=== PATIENT | female | born 1955 | race American Indian/Alaskan Native ===

== ENCOUNTER 2019-03-04 06:04 | Day surgery (SDC) | payer OTHER ==
[~2019-03-04 06:04] MED LIST: TETRACAINE 0.5% OD SCH
[2019-03-04] MEDS: VIGAMOX OD SCH ×3 (07:50→08:00)
[2019-03-04] MEDS: AK-Dilate OD SCH ×3 (07:50→08:00)
[2019-03-04] MEDS: MYDRIACYL OD SCH ×3 (07:50→08:00)
--- NOTE | 2019-03-04 08:32 | Anesthesia Consultation ---
Anesthesia Consult and Med Hx Date of service: 03/04/19 - Airway ROM Head & Neck: Adequate Mental/Hyoid Distance: Adequate Mallampati Class: Class II Intubation Access Assessment: Probably Good - Pulmonary Exam CTA: Yes - Cardiac Exam Cardiac Exam: RRR - Pre-Operative Health Status ASA Pre-Surgery Classification: ASA3 Proposed Anesthetic Plan: MAC - Pulmonary Hx Smoking: No Hx Respiratory Symptoms: No - Cardiovascular System Hx Hypertension: Yes (NO MEDS) Hx Coronary Artery Disease: Yes Hx Heart Attack/AMI: No Hx Peripheral Vascular Disease: Yes (bilateral lower extremity edema) - Central Nervous System CVA: No - Endocrine Hx Renal Disease: No Hx Insulin Dependent Diabetes: No Hx Non-Insulin Dependent Diabetes: No Hx Hypothyroidism: Yes - Other Systems Hx Obesity: Yes
--- NOTE | 2019-03-04 08:32 | Anesthesia Day of Surgery ---
Anesthesia Day of Surgery - Day of Surgery Patient Examined: Yes Patient H&P Reviewed: Yes Patient is NPO: Yes
[2019-03-04] MEDS ORDERED: VERSED ONE ×2 (08:35→10:15)
[2019-03-04] MEDS ORDERED: SUBLIMAZE ONE ×2 (08:36→10:15)
[2019-03-04] MEDS ORDERED: PRED FORTE 1% OD NR (08:58)
--- NOTE | 2019-03-04 08:59 | Operative Report ---
Operative Report Operative Report: PATIENT'S NAME: DATE OF : DATE OF SURGERY: 03/04/2019 PREOPERATIVE DIAGNOSIS: Cataract right eye POSTOPERATIVE DIAGNOSIS: Same OPERATIVE PROCEDURE: Phacoemulsification with intraocular lens implantation, right eye SURGEON: Jennifer Salinas M.D. REIMBURSEMENT COORDINATOR SURGEON: Elzbieta Lens: [id number] 18.5 D ANESTHESIA: Monitored anesthesia care in combination with topical and intracameral anesthesia because of the established specific risk of reflux, arrhythmias, or anxiety attacks associated with ocular manipulation, as well as the difficulty of the mail order sorter to manage such potentially catastrophic events while simultaneously attempting to complete the surgical procedure and was deemed necessary for the patient's safety to have an Sign Board Erector present during the procedure whenever possible. An Sign Board Erector was utilized to regulate the intravenous sedation of the patient so the patient was cooperative yet not asleep in order for the patient to successfully maintain fixation of the eye on the operating light of the microscope. COMPLICATIONS: No surgical complications No blood loss. ALLERGIES: No known drug allergies PROGNOSIS: Excellent INDICATIONS FOR SURGERY: The patient is undergoing surgery in the hopes of eliminating or improving these visual difficulties. PROCEDURE: After arriving at the surgery center, the patient was given topical anesthetic and dilating drops, as noted in the record. The patient was then taken into the operating room and given more anesthetic drops. The eyelids, lashes, and lid margins were scrubbed with Betadine solution, and the patient was draped. The Nurse Sign Board Erector administered IV sedation and monitored the patient during the procedure. The eye was then fixated with a 0.12, and a stab incision was made in the peripheral clear cornea into the anterior chamber. This was made on my left side. Viscoelastic was next used to fill the anterior chamber. The eye was once again fixated with the 0.12 forceps and a keratome was used make an incision in clear cornea peripherally on my right hand side temporally. The capsule forceps were used to open the central anterior capsule and then make a continuous round capsulotomy. Hydrodissection was carried out utilizing a cannula and balanced salt solution to delineate the cortical material from the capsule and the nucleus from the cortical material. The phaco tip was introduced into the eye and used to remove the anterior cortical material in the area of the capsulotomy. Then the phaco tip was buried into the nucleus, and a chopping instrument was introduced into the eye and used to provide countertraction in the nucleus between this instrument and the phaco tip fracturing the nucleus. This procedure was repeated multiple times, providing multiple small segments of the lens, and then the phaco tip was used to remove each of these segments. An I/A tip was then used to remove the remaining cortex. The anterior chamber was refilled with viscoelastic. An one-piece, acrylic intraocular lens was then placed into an inserting cartridge. The tip of the inserting cartridge was introduced into the keratome incision and into the anterior chamber. The implant was gently advanced through the cartridge and into the eye, where it unfolded, and both haptics were placed in the capsular bag, where it centered nicely and appeared to be well fixated. After placement of the intraocular lens, the I~and~A handpiece was placed back into the eye and used to remove the viscoelastic, including viscoelastic that was behind the optic of the intraocular lens. The anterior chamber was then filled with balanced salt solution, and hydration of the wound was used to cause swelling of the wound and more appropriate watertight closure. When the wound was found to be firm, the patient was asked to comment on how bright the light was. If there was no light perception at all or if the light was substantially dimmer than during the rest of the surgery, the amount of fluid in the eye was decompressed to lower the intraocular pressure until the patient could see the b right light again. This was done to avoid any damage or decreased blood flow to the optic nerve. MEDICATIONS APPLIED AT END OF SURGERY: One drop of Pred Forte and Vigamox The patient was given a shield to wear at night and was instructed not to rub or push on the eye. DISCHARGE SUMMARY: The patient was released in stable condition. The patient and those with the patient were given a written sheet of postoperative instructions and counseling on any abnormal laboratory studies. The patient is to see us tomorrow for follow-up in the office and is to call immediately for any difficulties. Jennifer Salinas M.D. Date
--- NOTE | 2019-03-04 09:00 | Short Stay Summary ---
Short Stay Documentation Date of service: 03/04/19 - History H&P: obtained from office - Allergies and Medications Current Medications: Allergies No Known Allergies Allergy (Verified 03/03/19 17:38) Home Medications Medication Instructions Recorded Confirmed Last Taken Type Levothyroxine [Synthroid] 75 mcg PO QAM 03/03/19 03/03/19 Unknown History Active Medications Acetazolamide (Diamox) 500 mg PO ONCE ONE Stop: 03/04/19 08:59 Moxifloxacin HCl (Vigamox) 1 drops OD Q5MIN BG Stop: 03/04/19 23:59 Last Admin: 03/04/19 08:00 Dose: 1 drops Documented by: Phenylephrine HCl (Ak-Dilate) 1 drops OD Q5MIN BG Stop: 03/04/19 23:59 Last Admin: 03/04/19 08:00 Dose: 1 drops Documented by: Prednisolone Acetate (Pred Forte 1%) 1 drops OD ONCE ONE Stop: 03/04/19 08:59 Tetracaine HCl (Tetracaine 0.5%) 1 drops OD Q5M BG Stop: 03/04/19 23:59 Last Admin: 03/04/19 07:50 Dose: 1 drops Documented by: Tropicamide (Mydriacyl) 1 drops OD Q5MIN BG Stop: 03/04/19 23:59 Last Admin: 03/04/19 08:00 Dose: 1 drops Documented by: - Brief post op/procedure progress note Date of procedure: 03/04/19 Pre-op diagnosis: right cataract Post-op diagnosis: same Procedure: Phacoemulsified patient with intraocular lens insertion right eye Anesthesia: MAC, local Surgeon: EFREN ZIMMERMAN Estimated blood loss: none Pathology: none Condition: stable - Disposition Condition at discharge: Good Disposition: DC-01 TO HOME OR SELFCARE - Discharge Diagnoses (1) Cortical age-related cataract of right eye Status: Resolved Short Stay Discharge Plan Follow up with: LINDEN WOOD MD [Primary Care Provider] - 7 Days
[2019-03-04] MEDS ORDERED: DIAMOX PO NR (09:30)
[2019-03-04] MEDS ORDERED: ROBINUL ONE (10:13)
[2019-03-04] MEDS ORDERED: ZOFRAN ONE (10:14)
[2019-03-04] MEDS ORDERED: DIPRIVAN 10 MG/ML IV ONE (10:16)
[2019-03-04] MEDS ORDERED: XYLOCAINE MPF 2% ONE (10:16)
--- NOTE | 2019-03-04 10:26 | Post Anesthesia Evaluation ---
- Post Anesthesia Evaluation Patient Participated: Yes Airway Patent: Yes Stable Respiratory Function: Yes Nausea/Vomiting: No Temp > 96.8F: Yes Pain Manageable: Yes Adequeate Hydration: Yes Anesthesia Complications: No
[2019-03-04 17:14] VITALS: BP 145/85
[2019-03-04] MEDS ORDERED: DIAMOX PO ONE (17:30)
[2019-03-04] MEDS ORDERED: PRED FORTE 1% OD SCH (18:00)
== END 2019-03-04 10:10 | disposition home or self-care (01) ==
LOC: OR 06:04
DX: H25.011 Cortical age-related cataract, right eye (principal); I25.10 Atherosclerotic heart disease of native coronary artery without angina pectoris; I10 Essential (primary) hypertension; E66.9 Obesity, unspecified; M19.90 Unspecified osteoarthritis, unspecified site; E05.90 Thyrotoxicosis, unspecified without thyrotoxic crisis or storm; Z79.899 Other long term (current) drug therapy; Z98.42 Cataract extraction status, left eye; Z98.890 Other specified postprocedural states; Z90.49 Acquired absence of other specified parts of digestive tract; Z68.32 Body mass index [BMI] 32.0-32.9, adult; Z98.51 Tubal ligation status
CPT/HCPCS: 66984; J2250; J2405; J3010; J2704; V2632

== ENCOUNTER 2021-04-26 04:17 | Inpatient (IN) | payer MEDICARE ==
[2021-04-26] MEDS ORDERED: ONDANSETRON 4 MG/2 ML INJ IV ONE (05:26)
[2021-04-26 06:13] LABS: Basophils % (Auto) 0.5 % (0.0-1.8); Hematocrit 38.6 % (30.3-42.9); Hemoglobin 13.5 gm/dl (10.1-14.3); Lymphocytes # (Auto) 1.2 K/mm3 (1.2-5.4); Lymphocytes % (Auto) 16.6 % (13.4-35.0); Mean Corpuscular HGB Conc 35 % (30-34); Mean Corpuscular Volume 92 fl (79-97); Monocytes # (Auto) 0.4 K/mm3 (0.0-0.8); Platelet Count 245 K/mm3 (140-440); Red Blood Count 4.22 M/mm3 (3.65-5.03); Red Cell Distribution Width 13.6 % (13.2-15.2)
[2021-04-26 06:24] LABS: Alanine Aminotransferase 7 units/L (7-56); Albumin 4.6 g/dL (3.9-5); Blood Urea Nitrogen 11 mg/dL (7-17); Calcium 9.7 mg/dL (8.4-10.2); Hemolysis Index 20
--- NOTE | 2021-04-26 06:25 | Emergency Department Report ---
ED General Adult HPI - General Chief complaint: Nausea/Vomiting/Diarrhea Stated complaint: EMESIS/ X2 DAYS PUI?: No Time Seen by Provider: 04/26/21 06:11 Source: patient, family, RN notes reviewed, old records reviewed Mode of arrival: Ambulatory Limitations: Other (The patient prefers not to speak. The patient asks that her daughter communicate for her.) - History of Present Illness Initial comments: During the history and physical examination, I am chaperoned by nurse Amirah Ahmadi The patient is a 66-year-old female. She is not known to myself previously. She has a history of BMI 31.8, hypertension, arthritis, history of hysterectomy, reportedly complicated by bowel perforation. She is accompanied by her daughter, Ms. Crow Colin; [phone]. The patient requests that her daughter remain at the bedside, and provide the history of present illness. The patient presents with a complaint of bilious nausea and vomiting x2 days. The patient denies headache and neck pain. She has chest pain. The chest pain is central and right-sided and left-sided. The chest pain moves down to her lower abdomen. There is no cough. Positive nausea, positive vomiting. Positive decrease in stool/flatus. Positive dysuria. Positive chronic bilateral lower extremity swelling. Pain increases with palpation. Decreases with rest and position. No travel, surgery, immobilization. -: Gradual, days(s) Location: chest, abdomen Radiation: abdomen, distal Quality: other (The patient does not describe the qualitative nature of her symptoms) Consistency: constant Improves with: rest Worsens with: movement - Related Data Home Medications Medication Instructions Recorded Confirmed Last Taken Levothyroxine [Synthroid] 75 mcg PO QAM 03/03/19 04/26/21 04/25/21 08:00 Lasix 40 mg PO DAILY 04/26/21 04/26/21 04/25/21 08:00 Allergies Allergy/AdvReac Type Severity Reaction Status Date / Time No Known Allergies Allergy Verified 04/26/21 09:50 ED Review of Systems ROS: Stated complaint: EMESIS/ X2 DAYS Other details as noted in HPI Constitutional: other (Denies loss of taste and smell). denies: fever Eyes: denies: eye discharge ENT: denies: epistaxis Respiratory: denies: cough Cardiovascular: chest pain Gastrointestinal: abdominal pain, nausea, vomiting Genitourinary: dysuria Musculoskeletal: myalgia Neurological: weakness Hematological/Lymphatic: denies: easy bleeding ED Past Medical Hx - Past Medical History Previous Medical History?: Yes Hx Hypertension: Yes Hx Heart Attack/AMI: No Hx Renal Disease: No Hx Arthritis: Yes Additional medical history: hypothyroidism - Surgical History Past Surgical History?: Yes Additional Surgical History: bowel surgery 2018 - Social History Smoking Status: Never Smoker Substance Use Type: None - Medications Home Medications: Home Medications Medication Instructions Recorded Confirmed Last Taken Type Levothyroxine [Synthroid] 75 mcg PO QAM 03/03/19 04/26/21 04/25/21 08:00 History Lasix 40 mg PO DAILY 04/26/21 04/26/21 04/25/21 08:00 History ED Physical Exam - General Limitations: Physical Limitation General appearance: alert, anxious, obese - Head Head exam: Present: atraumatic, normocephalic - Eye Eye exam: Present: normal appearance, EOMI. Absent: nystagmus - ENT ENT exam: Present: normal exam, normal orophraynx, mucous membranes moist, normal external ear exam - Neck Neck exam: Present: normal inspection, full ROM. Absent: tenderness, meningismus - Respiratory Respiratory exam: Present: normal lung sounds bilaterally. Absent: respiratory distress, wheezes, rales, rhonchi, stridor - Cardiovascular Cardiovascular Exam: Present: normal rhythm, bradycardia, normal heart sounds. Absent: tachycardia, irregular rhythm, systolic murmur, diastolic murmur, rubs, gallop - GI/Abdominal GI/Abdominal exam: Present: soft, distended, tenderness. Absent: guarding, rebound, rigid, pulsatile mass - Extremities Exam Extremities exam: Present: normal inspection, full ROM, pedal edema (2-3+ edema in the bilateral lower extremities. Daughter states this is chronic.), other (2+ pulses noted in the bilateral upper and lower extremities. There is no palpable cord. negative Homans sign. Muscular compartments are soft. The pelvis is stable.). Absent: calf tenderness - Back Exam Back exam: Present: normal inspection. Absent: tenderness, CVA tenderness (R), CVA tenderness (L), paraspinal tenderness, vertebral tenderness - Neurological Exam Neurological exam: Present: alert, other (No facial droop. Tongue midline. Extraocular movements intact bilaterally. Facial sensation intact to light touch in V1, V2, V3 distribution bilaterally. 5 and a 5 strength in 4 extremities. Sensation intact to light touch in 4 extremities.) - Psychiatric Psychiatric exam: Present: anxious - Skin Skin exam: Present: warm, dry, intact, normal color. Absent: rash ED Course Vital Signs 04/26/21 04/26/21 04/26/21 04:25 05:51 06:00 Temperature 99.3 F Pulse Rate 68 46 L Respiratory 16 17 Rate Blood Pressure 148/75 152/77 150/84 O2 Sat by Pulse 95 97 Oximetry 04/26/21 04/26/21 04/26/21 06:05 06:16 06:30 Temperature Pulse Rate 51 L 62 Respiratory 16 18 19 Rate Blood Pressure 150/84 150/84 O2 Sat by Pulse 99 99 Oximetry 04/26/21 04/26/21 04/26/21 06:46 07:00 09:24 Temperature Pulse Rate 56 L 54 L Respiratory 25 H 24 Rate Blood Pressure 186/100 152/77 162/69 O2 Sat by Pulse 100 99 Oximetry 04/26/21 04/26/21 04/26/21 09:30 09:46 10:00 Temperature Pulse Rate 49 L 46 L Respiratory 14 15 Rate Blood Pressure 162/69 162/69 155/63 O2 Sat by Pulse 99 97 99 Oximetry 04/26/21 04/26/21 04/26/21 10:16 10:30 10:46 Temperature Pulse Rate 58 L 52 L 50 L Respiratory 12 13 13 Rate Blood Pressure 155/63 156/59 156/59 O2 Sat by Pulse 99 98 99 Oximetry 04/26/21 04/26/21 04/26/21 11:00 11:16 11:30 Temperature Pulse Rate 47 L 50 L 49 L Respiratory 12 12 11 L Rate Blood Pressure 152/53 152/53 155/53 O2 Sat by Pulse 98 98 99 Oximetry 04/26/21 11:46 Temperature Pulse Rate 48 L Respiratory 13 Rate Blood Pressure 155/53 O2 Sat by Pulse 100 Oximetry - Reevaluation(s) Reevaluation #1: 04/26/21 08:02 Differential diagnosis, including but not limited to: Obstruction, colitis, diverticulitis, volvulus, pneumonia, urinary tract infection, GERD, gastritis, hiatal hernia, acute coronary syndrome, pulmonary embolism, DVT, dependent edema Assessment and plan: 66-year-old female with a primary complaint of abdominal pain, secondary complaint of chest pain and urinary symptoms. The patient is afebrile, with reassuring vital signs, and is not currently tachycardic, tachypneic or hypoxic. She denies DVT and pulmonary embolism risk factors and she is low risk by Wells criteria for pulmonary embolism. However, she has lower extremity edema and swelling, and is poorly mobile, and has an elevated D-dimer. Unable to establish 20-gauge IV access. In terms of patient's abdominal pain, treat with fluids, pain medication, nausea medication, obtain urinalysis, appropriate laboratory studies, and CT scan of the abdomen pelvis with IV contrast. In terms of the patient's chest pain, obtain nuclear medicine study, bilateral lower extremity DVT study, obtain EKG, and reassess. Hold aspirin pending CT scan results. Have discussed this plan of care with the patient and her daughter. They are in agreement with this plan of care. They have articulated understanding. Questions answered thus far. 04/26/21 08:59 As expected, CT scan abdomen pelvis demonstrates a small bowel obstruction. X-ray of the chest, nuclear medicine study low probability for pulmonary embolism, negative for acute findings. Bilateral lower extremity DVT study negative. Contacted general surgery on-call, Dr. Camejo. Have discussed the patient's history, physical, laboratory studies, imaging studies, and laboratories. He will follow in consultation. Nasogastric tube is recommended. Have discussed the patient's findings with her daughter, and herself, after the patient gave consent for discussion of her results. They are amenable to admission and hospitalization. Hospital physician, Dr. Li Reese to admit I will withhold aspirin at this time, given presence of small bowel obstruction - Consultations Consultation #1: 04/26/21 09:00 Contacted general surgery on-call, Dr. Camejo. Have discussed the patient's history, physical, laboratory studies, imaging studies, and laboratories. He will follow in consultation. Nasogastric tube is recommended. ED Medical Decision Making - Lab Data Result diagrams: 04/26/21 05:31 04/26/21 05:31 Vital Signs 04/26/21 04/26/21 04/26/21 04:25 05:51 06:00 Temperature 99.3 F Pulse Rate 68 46 L Respiratory 16 17 Rate Blood Pressure 148/75 152/77 150/84 O2 Sat by Pulse 95 97 Oximetry 04/26/21 06:05 Temperature Pulse Rate Respiratory 16 Rate Blood Pressure O2 Sat by Pulse Oximetry Lab Results 04/26/21 04/26/21 04/26/21 Range/Units 05:31 05:31 05:31 WBC 7.1 (4.5-11.0) K/mm3 RBC 4.22 (3.65-5.03) M/mm3 Hgb 13.5 (10.1-14.3) gm/dl Hct 38.6 (30.3-42.9) % MCV 92 (79-97) fl MCH 32 (28-32) pg MCHC 35 H (30-34) % RDW 13.6 (13.2-15.2) % Plt Count 245 (140-440) K/mm3 Lymph % (Auto) 16.6 (13.4-35.0) % Terry % (Auto) 6.0 (0.0-7.3) % Eos % (Auto) 0.0 (0.0-4.3) % Baso % (Auto) 0.5 (0.0-1.8) % Lymph # (Auto) 1.2 (1.2-5.4) K/mm3 Terry # (Auto) 0.4 (0.0-0.8) K/mm3 Eos # (Auto) 0.0 (0.0-0.4) K/mm3 Baso # (Auto) 0.0 (0.0-0.1) K/mm3 Seg Neutrophils % 76.9 H (40.0-70.0) % Seg Neutrophils # 5.5 (1.8-7.7) K/mm3 PT (12.2-14.9) Sec. INR (0.87-1.13) D-Dimer (0-234) ng/mlDDU Sodium 142 (137-145) mmol/L Potassium 3.8 (3.6-5.0) mmol/L Chloride 101.8 (98-107) mmol/L Carbon Dioxide 28 (22-30) mmol/L Anion Gap 16 mmol/L BUN 11 (7-17) mg/dL Creatinine 0.7 (0.6-1.2) mg/dL Estimated GFR > 60 ml/min BUN/Creatinine Ratio 16 % Glucose 96 (65-100) mg/dL Calcium 9.7 (8.4-10.2) mg/dL Magnesium 2.00 (1.7-2.3) mg/dL Total Bilirubin 0.90 (0.1-1.2) mg/dL AST 16 (5-40) units/L ALT 7 (7-56) units/L Alkaline Phosphatase 65 (35-129) units/L Total Creatine Kinase 57 (30-135) units/L Troponin T < 0.010 (0.00-0.029) ng/mL Total Protein 7.4 (6.3-8.2) g/dL Albumin 4.6 (3.9-5) g/dL Albumin/Globulin Ratio 1.6 % 04/26/21 Range/Units 06:47 WBC (4.5-11.0) K/mm3 RBC (3.65-5.03) M/mm3 Hgb (10.1-14.3) gm/dl Hct (30.3-42.9) % MCV (79-97) fl MCH (28-32) pg MCHC (30-34) % RDW (13.2-15.2) % Plt Count (140-440) K/mm3 Lymph % (Auto) (13.4-35.0) % Terry % (Auto) (0.0-7.3) % Eos % (Auto) (0.0-4.3) % Baso % (Auto) (0.0-1.8) % Lymph # (Auto) (1.2-5.4) K/mm3 Terry # (Auto) (0.0-0.8) K/mm3 Eos # (Auto) (0.0-0.4) K/mm3 Baso # (Auto) (0.0-0.1) K/mm3 Seg Neutrophils % (40.0-70.0) % Seg Neutrophils # (1.8-7.7) K/mm3 PT 14.2 (12.2-14.9) Sec. INR 1.05 (0.87-1.13) D-Dimer 1276.72 H (0-234) ng/mlDDU Sodium (137-145) mmol/L Potassium (3.6-5.0) mmol/L Chloride (98-107) mmol/L Carbon Dioxide (22-30) mmol/L Anion Gap mmol/L BUN (7-17) mg/dL Creatinine (0.6-1.2) mg/dL Estimated GFR ml/min BUN/Creatinine Ratio % Glucose (65-100) mg/dL Calcium (8.4-10.2) mg/dL Magnesium (1.7-2.3) mg/dL Total Bilirubin (0.1-1.2) mg/dL AST (5-40) units/L ALT (7-56) units/L Alkaline Phosphatase (35-129) units/L Total Creatine Kinase (30-135) units/L Troponin T (0.00-0.029) ng/mL Total Protein (6.3-8.2) g/dL Albumin (3.9-5) g/dL Albumin/Globulin Ratio % - EKG Data -: EKG Interpreted by [facility] EKG shows normal: sinus rhythm Rate: normal - EKG Data When compared to previous EKG there are: previous EKG unavailable 04/26/21 08:00 The EKG is interpreted at 06: 49 Sinus rhythm, bradycardia, rate 52 bpm. Normal axis, normal intervals, borderline left ventricular hypertrophy. Abnormal EKG. Not a STEMI. No prior for comparison. - Radiology Data Radiology results: pending, report reviewed, image reviewed XR chest 1V ap INDICATION / CLINICAL INFORMATION: cp. COMPARISON: None available. FINDINGS: SUPPORT DEVICES: None. HEART /PULMONARY VASCULATURE: Cardiac silhouette is enlarged without significant pulmonary vasculature congestion. LUNGS / PLEURA: No significant pulmonary or pleural abnormality. No pneumothorax. ADDITIONAL FINDINGS: No significant additional findings. IMPRESSION: 1. No acute findings. Signer Name: Gildardo Cadena MD Signed: 04/26/2021 6:02 AM Workstation Name: [id number] XR chest 1V ap INDICATION / CLINICAL INFORMATION: cp. COMPARISON: None available. FINDINGS: SUPPORT DEVICES: None. HEART /PULMONARY VASCULATURE: Cardiac silhouette is enlarged without significant pulmonary vasculature congestion. LUNGS / PLEURA: No significant pulmonary or pleural abnormality. No pneumothorax. ADDITIONAL FINDINGS: No significant additional findings. IMPRESSION: 1. No acute findings. Signer Name: Gildardo Cadena MD Signed: 04/26/2021 6:02 AM Workstation Name: [id number] DUPLEX DOPPLER LOWER EXTREMITY VEINS, BILATERAL INDICATION / CLINICAL INFORMATION: b/l lower ext swelling. TECHNIQUE: Duplex doppler imaging was performed through the veins of both lower extremities using venous compression and other maneuvers. COMPARISON: None available. FINDINGS: RIGHT COMMON FEMORAL VEIN: Negative. RIGHT FEMORAL VEIN: Negative. RIGHT POPLITEAL VEIN: Negative. RIGHT CALF VEINS: Negative. LEFT COMMON FEMORAL VEIN: Negative. LEFT FEMORAL VEIN: Negative. LEFT POPLITEAL VEIN: Negative. LEFT CALF VEINS: Negative. ADDITIONAL FINDINGS: None. IMPRESSION: 1. No sonographic evidence for DVT in either lower extremity. Signer Name: Elliott Lazo MD Signed: 04/26/2021 7:38 AM Workstation Name: [employer] NUCLEAR MEDICINE PERFUSION LUNG SCAN INDICATION / CLINICAL INFORMATION: cp leg swelling + d dimer. TECHNIQUE: 5.5 mCi of Tc-99m MAA were given by IV. COMPARISON: Chest radiograph dated 04/26/2021. FINDINGS: PERFUSION: No significant perfusion defects. ADDITIONAL FINDINGS: None. IMPRESSION: 1. Low probability for pulmonary embolism. Signer Name: Elliott Lazo MD Signed: 04/26/2021 7:50 AM Workstation Name: [employer] CT ABDOMEN AND PELVIS WITH CONTRAST HISTORY: Abdominal pain, nausea, vomiting COMPARISON: None TECHNIQUE: Routine abdominal and pelvic CT exam performed following intravenous contrast administration.. All CT scans at this location are performed using CT dose reduction for ALARA by means of automated exposure control. FINDINGS: CT ABDOMEN: Lung Bases: No significant abnormality. Liver: No significant abnormality. Biliary: Multiple stones in the gallbladder without evidence of acute cholecystitis. Spleen: No significant abnormality. Unenlarged. Pancreas: No significant abnormality. Adrenals: No significant abnormality. Kidneys: No significant abnormality. Lymphatics: No lymphadenopathy. Vasculature: No significant abnormality. Bowel/Peritoneum: There has been previous partial small bowel resection. At the level of the anastomosis, there is apparent obstruction with resultant moderate small bowel obstruction. Normal appendix. CT PELVIC: : No significant abnormality. Lymphatics: No lymphadenopathy. Osseous Structures: No aggressive appearing osseous lesions. Additional Findings: None IMPRESSION: 1. Apparent moderate small bowel obstruction at the level of a small bowel anastomosis from previous surgery in the right lower quadrant. No free air. 2. Cholelithiasis without evidence of acute cholecystitis. Signer Name: Elliott Lazo MD Signed: 04/26/2021 7:43 AM Workstation Name: [employer] ABDOMEN 1 VIEW INDICATION / CLINICAL INFORMATION: NG tube placement. COMPARISON: CT abdomen and pelvis with contrast performed earlier today. FINDINGS: TUBES / LINES: An NG tube has been placed that terminates over the gastric body. BOWEL GAS PATTERN: Mildly dilated small bowel loops are noted with air seen throughout the colon. FREE AIR / EXTRALUMINAL GAS: None seen. ADDITIONAL FINDINGS: Previously administered IV contrast remains along the renal collecting systems/ureters. IMPRESSION: 1. Satisfactory positioning of the NG tube. 2. Mild small bowel dilatation. Please see the report from the CT performed earlier today for further details. Signer Name: Harman Kapadia MD Signed: 04/26/2021 10:40 AM Workstation Name: [id number] Critical care attestation.: If time is entered above; I have spent that time in minutes in the direct care of this critically ill patient, excluding procedure time. ED Disposition Clinical Impression: Acute chest pain, Acute abdominal pain, Swelling of lower extremity, Small bowel obstruction Disposition: OP ADMIT IP TO THIS HOSP Is pt being admited?: Yes Does the pt Need Aspirin: No Condition: Good Heart Score - HEART Score History: Slightly suspicious EKG: Non-specific Age: 45-65 Risk factors: 1-2 risk factors Troponin: < normal limit HEART Score: 3 - EKG Read Time Time EKG Completed: 06:49 EKG Read Time: 07:00 - Critical Actions Critical Actions: 0-3 pts:0.9-1.7%risk of adverse cardiac event.Candidate for discharge
[2021-04-26] MEDS ORDERED: LACTATED RINGERS 500 ML IV ONE (06:26)
[2021-04-26] MEDS ORDERED: MORPHINE 2 MG/1 ML INJ IV ONE (06:26)
[2021-04-26 06:28] LABS: BUN/Creatinine Ratio 16
--- NOTE | 2021-04-26 07:07 | XRay Report ---
XR chest 1V ap INDICATION / CLINICAL INFORMATION: cp. COMPARISON: None available. FINDINGS: SUPPORT DEVICES: None. HEART /PULMONARY VASCULATURE: Cardiac silhouette is enlarged without significant pulmonary vasculatur e congestion. LUNGS / PLEURA: No significant pulmonary or pleural abnormality. No pneumothorax. ADDITIONAL FINDINGS: No significant additional findings. IMPRESSION: 1. No acute findings. Signer Name: Gildardo Cadena MD Signed: 04/26/2021 7:02 AM Workstation Name: [id number]
[2021-04-26 07:12] LABS: INR 1.05 (0.87-1.13)
--- NOTE | 2021-04-26 08:43 | Vascular Lab Report ---
. DUPLEX DOPPLER LOWER EXTREMITY VEINS, BILATERAL INDICATION / CLINICAL INFORMATION: b/l lower ext swelling. TECHNIQUE: Duplex doppler imaging was performed through the veins of both lower extremities using venous chloe anna and other maneuvers. COMPARISON: None available. FINDINGS: RIGHT COMMON FEMORAL VEIN: Negative. RIGHT FEMORAL VEIN: Negative. RIGHT POPLITEAL VEIN: Negative. RIGHT CALF VEINS: Negative. LEFT COMMON FEMORAL VEIN: Negative. LEFT FEMORAL VEIN: Negative. LEFT POPLITEAL VEIN: Negative. LEFT CALF VEINS: Negative. ADDITIONAL FINDINGS: None. IMPRESSION: 1. No sonographic evidence for DVT in either lower extremity. Signer Name: Elliott Lazo MD Signed: 04/26/2021 8:38 AM Workstation Name: [id number]
--- NOTE | 2021-04-26 08:48 | Cat Scan Report ---
CT ABDOMEN AND PELVIS WITH CONTRAST HISTORY: Abdominal pain, nausea, vomiting COMPARISON: None TECHNIQUE: Routine abdominal and pelvic CT exam performed following intravenous contrast administrat ion.. All CT scans at this location are performed using CT dose reduction for ALARA by means of autom ated exposure control. FINDINGS: CT ABDOMEN: Lung Bases: No significant abnormality. Liver: No significant abnormality. Biliary: Multiple stones in the gallbladder without evidence of acute cholecystitis. Spleen: No significant abnormality. Unenlarged. Pancreas: No significant abnormality. Adrenals: No significant abnormality. Kidneys: No significant abnormality. Lymphatics: No lymphadenopathy. Vasculature: No significant abnormality. Bowel/Peritoneum: There has been previous partial small bowel resection. At the level of the anastomo sis, there is apparent obstruction with resultant moderate small bowel obstruction. Normal appendix. CT PELVIC: : No significant abnormality. Lymphatics: No lymphadenopathy. Osseous Structures: No aggressive appearing osseous lesions. Additional Findings: None IMPRESSION: 1. Apparent moderate small bowel obstruction at the level of a small bowel anastomosis from previous surgery in the right lower quadrant. No free air. 2. Cholelithiasis without evidence of acute cholecystitis. Signer Name: Elliott Lazo MD Signed: 04/26/2021 8:43 AM Workstation Name: [id number]
[2021-04-26] MEDS ORDERED: LIDOCAINE VISCOUS 2% 15 ML ORAL LIQD MM STA (08:52)
[2021-04-26] MEDS ORDERED: MORPHINE 4 MG/1 ML INJ IV ONE (08:53)
--- NOTE | 2021-04-26 08:55 | Nuclear Medicine Report ---
NUCLEAR MEDICINE PERFUSION LUNG SCAN INDICATION / CLINICAL INFORMATION: cp leg swelling + d dimer. TECHNIQUE: 5.5 mCi of Tc-99m MAA were given by IV. COMPARISON: Chest radiograph dated 04/26/2021. FINDINGS: PERFUSION: No significant perfusion defects. ADDITIONAL FINDINGS: None. IMPRESSION: 1. Low probability for pulmonary embolism. Signer Name: Elliott Lazo MD Signed: 04/26/2021 8:50 AM Workstation Name: [id number]
--- NOTE | 2021-04-26 09:58 | History and Physical Report ---
History of Present Illness Date of examination: 04/26/21 Date of admission: 04/26/21 09:01 Chief complaint: abdominal pain History of present illness: The patient is a 66-year-old female with h/o hypertension, arthritis, history of hysterectomy complicated with bowel perforation on 2019 now presents with a complaint of abdominal distention with nausea and bilious vomiting for [address] abdomen pelvis showed apparent moderate small bowel obstruction at the level of a small bowel anastomosis from previous surgery in the right lower quadrant. GS was consulted in the ER, patient placed on NG suction and being admitted for further evaluation and Mx. Past medical History: h/o HTN, hypothyroidism, obesity Past surgical History: s/p thyroidectomy, hysterectomy Social History: Lives with family, denies any smoking, drinking and elicit drug abuse. Family History: Significant for breast cancer running in the family. Review of System: Constitutional: no fever, no chills, no weight loss Ears, eyes, nose, mouth and throat: no nasal congestion, no nasal discharge, no sinus pressure, no vision change, no red eye. Neck: No neck pain or rigidity. Cardiovascular: No chest pain, no orthopnea, no palpitations, no leg swelling Respiratory: No shortness of breath, no cough, no congestion, no wheezing Gastrointestinal: + abdominal distention, + nausea, + vomiting Genitourinary : no dysuria, no hematuria Musculoskeletal: no joint swelling or muscle ache Integumentary: no rash, no pruritis Neurological: no parathesias, no numbness, no tingling Endocrine: no cold or heat intolerance, no polyuria or polydipsia Hematologic/Lymphatic: no easy bruising, no easy bleeding, no gland swelling Allergic/Immunologic: no urticaria, no angioedema. Medications and Allergies Allergies Allergy/AdvReac Type Severity Reaction Status Date / Time No Known Allergies Allergy Verified 04/26/21 09:50 Home Medications Medication Instructions Recorded Confirmed Last Taken Type Levothyroxine [Synthroid] 75 mcg PO QAM 03/03/19 04/26/21 04/25/21 08:00 History Lasix 40 mg PO DAILY 04/26/21 04/26/21 04/25/21 08:00 History Exam - Physical Exam Narrative exam: GENERAL: well-developed and well-nourished -[place] elderly female lying on bed appeared to be in no discomfort. HEENT: Normocephalic. Atraumatic. No conjunctival congestion or icterus. Patient has moist mucous membranes. NG tube in place NECK: Supple. Trachea midline. CHEST/LUNGS: Clear to auscultated bilaterally, breathing nonlabored. No wheezes crackles or rhonchi. HEART/CARDIOVASCULAR: Regular in rate and rhythm. S1 and S2 positive. ABDOMEN: Abdomen is soft, nontender. Patient has absent bowel sounds. SKIN: There is no rash. Warm and dry. NEURO: No focal motor deficit. Follows command. MUSCULOSKELETAL: No joint effusion or tenderness. EXTRIMITY: No edema, no cyanosis or clubbing. PSYCH: Cooperative. - Constitutional Vitals: Temp Pulse Resp BP Pulse Ox 99.3 F 49 L 14 162/69 97 04/26/21 04:25 04/26/21 09:46 04/26/21 09:46 04/26/21 09:46 04/26/21 09:46 HEART Score - HEART Score EKG: Non-specific Age: 45-65 Risk factors: 1-2 risk factors Troponin: Troponin T < 0.010 ng/mL (0.00-0.029) 04/26/21 05:31 Troponin: < normal limit - Critical Actions Critical Actions: 0-3 pts:0.9-1.7%risk of adverse cardiac event.Candidate for discharge Results - Labs CBC & Chem 7: 04/26/21 05:31 04/26/21 05:31 Labs: Abnormal lab results 04/26/21 04/26/21 Range/Units 05:31 06:47 MCHC 35 H (30-34) % Seg Neutrophils % 76.9 H (40.0-70.0) % D-Dimer 1276.72 H (0-234) ng/mlDDU - Imaging and Cardiology CT scan - abdomen: report reviewed Assessment and Plan Acute small bowel obstruction Hypertension Osteoarthritis Obesity -Admit patient to surgical unit -Keep n.p.o., place NG tube -Monitor BP, as needed as needed hydralazine for SBP greater than 160 -IV morphine as needed for pain, Zofran as needed -Dr. Camejo has been consulted will follow his recommendation -SCD for DVT prophylaxis
[2021-04-26 10:37] LABS: Bilirubin,Urine NEG (Negative); Blood,Urine SM (Negative); Color,Urine Yellow (Yellow); Mucus,Urine FEW /HPF; Protein,Urine <15 mg/dL mg/dL (Negative)
--- NOTE | 2021-04-26 11:44 | XRay Report ---
ABDOMEN 1 VIEW INDICATION / CLINICAL INFORMATION: NG tube placement. COMPARISON: CT abdomen and pelvis with contrast performed earlier today. FINDINGS: TUBES / LINES: An NG tube has been placed that terminates over the gastric body. BOWEL GAS PATTERN: Mildly dilated small bowel loops are noted with air seen throughout the colon. FREE AIR / EXTRALUMINAL GAS: None seen. ADDITIONAL FINDINGS: Previously administered IV contrast remains along the renal collecting systems/u reters. IMPRESSION: 1. Satisfactory positioning of the NG tube. 2. Mild small bowel dilatation. Please see the report from the CT performed earlier today for further details. Signer Name: Harman Kapadia MD Signed: 04/26/2021 11:40 AM Workstation Name: [id number]
[2021-04-26] MEDS: PANTOPRAZOLE 40 MG INJ IV SCH (15:14)
--- NOTE | 2021-04-26 15:22 | Consultation ---
History of Present Illness Consult date: 04/26/21 Reason for consult: abdominal pain - History of present illness History of present illness: 66 yo female with 3 days of diffuse, crampy abdominal pain, nausea and vomiting. She is s/p appendectomy, hysterectomy and BOAZ. Her hysterectomy was complicated by a small bowel injury necessitating an exploratory laparotomy. Medications and Allergies Allergies Allergy/AdvReac Type Severity Reaction Status Date / Time No Known Allergies Allergy Verified 04/26/21 09:50 Home Medications Medication Instructions Recorded Confirmed Last Taken Type Levothyroxine [Synthroid] 75 mcg PO QAM 03/03/19 04/26/21 04/25/21 08:00 History Lasix 40 mg PO DAILY 04/26/21 04/26/21 04/25/21 08:00 History Active Meds: Active Medications Pantoprazole Sodium (Pantoprazole 40 Mg Inj) 40 mg IV QDAY BG Last Admin: 04/26/21 15:14 Dose: 40 mg Documented by: Review of Systems All systems: negative (none.) Exam Vital Signs Temp Pulse Resp BP Pulse Ox 99.3 F 68 16 148/75 95 04/26/21 04:25 04/26/21 04:25 04/26/21 04:25 04/26/21 04:25 04/26/21 04:25 - General physical appearance Positive: well developed, well nourished, no distress - Eyes Positive: PERRL, normal occular movement - ENT Positive: normal pinna, normal nares, normal mucosa, no hearing loss, no congestion - Neck Positive: no masses, no bruits, trachea midline, no venous distension - Respiratory Positive: normal expansion, normal respiratory effort, clear to auscultation - Cardiovascular Rhythm: regular Heart Sounds: Present: S1 & S2. Absent: rub, click - Extremities Extremities: no ischemia, pulses symmetrical, No edema - Breasts Breasts: normal, no mass, no skin changes - Abdomen Abdomen: Present: soft, bowel sounds hypoactive, other (Mildly distended with mild diffuse tenderness without rebound or guarding.) Hernia: none - Genitourinary Male Genitourinary: normal Female Genitourinary: normal - Integumentary no rash, no growths, no abnormal pigmentation - Neurologic Neurologic: alert and oriented to time, place and person, motor strength and sensation are grossly intact - Musculoskeletal normal gait, normal posture - Psychiatric Psychiatric: appropriate mood/affect, intact judgment & insight Results - Labs 04/26/21 05:31 04/26/21 05:31 Abnormal lab results 04/26/21 04/26/21 04/26/21 Range/Units 05:31 06:47 09:53 MCHC 35 H (30-34) % Seg Neutrophils % 76.9 H (40.0-70.0) % D-Dimer 1276.72 H (0-234) ng/mlDDU Ur Specific [place] 1.059 H (1.003-1.030) Diabetes panel 04/26/21 Range/Units 05:31 Sodium 142 (137-145) mmol/L Potassium 3.8 (3.6-5.0) mmol/L Chloride 101.8 (98-107) mmol/L Carbon Dioxide 28 (22-30) mmol/L BUN 11 (7-17) mg/dL Creatinine 0.7 (0.6-1.2) mg/dL Glucose 96 (65-100) mg/dL Calcium 9.7 (8.4-10.2) mg/dL AST 16 (5-40) units/L ALT 7 (7-56) units/L Alkaline Phosphatase 65 (35-129) units/L Total Protein 7.4 (6.3-8.2) g/dL Albumin 4.6 (3.9-5) g/dL Calcium panel 04/26/21 Range/Units 05:31 Calcium 9.7 (8.4-10.2) mg/dL Albumin 4.6 (3.9-5) g/dL Pituitary panel 04/26/21 Range/Units 05:31 Sodium 142 (137-145) mmol/L Potassium 3.8 (3.6-5.0) mmol/L Chloride 101.8 (98-107) mmol/L Carbon Dioxide 28 (22-30) mmol/L BUN 11 (7-17) mg/dL Creatinine 0.7 (0.6-1.2) mg/dL Glucose 96 (65-100) mg/dL Calcium 9.7 (8.4-10.2) mg/dL Adrenal panel 04/26/21 Range/Units 05:31 Sodium 142 (137-145) mmol/L Potassium 3.8 (3.6-5.0) mmol/L Chloride 101.8 (98-107) mmol/L Carbon Dioxide 28 (22-30) mmol/L BUN 11 (7-17) mg/dL Creatinine 0.7 (0.6-1.2) mg/dL Glucose 96 (65-100) mg/dL Calcium 9.7 (8.4-10.2) mg/dL Total Bilirubin 0.90 (0.1-1.2) mg/dL AST 16 (5-40) units/L ALT 7 (7-56) units/L Alkaline Phosphatase 65 (35-129) units/L Total Protein 7.4 (6.3-8.2) g/dL Albumin 4.6 (3.9-5) g/dL - Imaging Abdominal x-ray: report reviewed CT scan - abdomen: report reviewed CT scan - pelvis: report reviewed Assessment and Plan - Patient Problems (1) Small bowel obstruction Current Visit: Yes Status: Acute Plan to address problem: 1) NG decompression and IVF 2) CBC, BMP and AXR tomorrow
[2021-04-26] MEDS ORDERED: D5W/0.9% NACL 1,000 ML IV SCH (23:45)
[2021-04-26] MEDS ORDERED: ONDANSETRON 4 MG/2 ML INJ IV PRN (23:53)
[2021-04-26] MEDS ORDERED: hydrALAZINE 20 MG/1 ML INJ IV PRN (23:53)
[2021-04-27 09:51] LABS: Basophils % (Auto) 0.4 % (0.0-1.8); Eosinophils # (Auto) 0.1 K/mm3 (0.0-0.4); Eosinophils % (Auto) 1.1 % (0.0-4.3); Hematocrit 38.3 % (30.3-42.9); Hemoglobin 12.6 gm/dl (10.1-14.3); Lymphocytes # (Auto) 1.9 K/mm3 (1.2-5.4); Lymphocytes % (Auto) 29.2 % (13.4-35.0); Mean Corpuscular HGB Conc 33 % (30-34); Mean Corpuscular Volume 92 fl (79-97); Monocytes # (Auto) 0.5 K/mm3 (0.0-0.8); Platelet Count 257 K/mm3 (140-440); Red Blood Count 4.15 M/mm3 (3.65-5.03); Red Cell Distribution Width 13.6 % (13.2-15.2)
[2021-04-27 09:54] LABS: BUN/Creatinine Ratio 16; Blood Urea Nitrogen 13 mg/dL (7-17); Calcium 9.3 mg/dL (8.4-10.2); Hemolysis Index 5
--- NOTE | 2021-04-27 10:09 | Electrocardiograph Report ---
[facility] Test Date: 2021-04-26 Test Time: 06:49:10 Pat Name: KEAGAN BECKETT Department: Room: A376 1 Gender: F 1St Grade Teacher: JULIENNE : 1955 Requested By: AZAM OSBORN Order Number: [id number] Reading MD: Reji Canseco Measurements Intervals [place] Rate: 52 P: 61 [place]: 165 QRS: 39 QRSD: 107 T: 28 QT: 470 QTc: 439 Interpretive Statements Sinus bradycardia No previous ECG available for comparison Electronically Signed On 04-27-2021 10:09:29 EDT by Reji Canseco
[2021-04-27] MEDS: PANTOPRAZOLE 40 MG INJ IV SCH (10:38)
--- NOTE | 2021-04-27 11:04 | XRay Report ---
ABDOMEN 2 VIEW(S) INDICATION / CLINICAL INFORMATION: sbo. COMPARISON: Abdominal radiograph and CT abdomen pelvis 04/26/2021 FINDINGS: TUBES / LINES: Stable position of enteric tube. BOWEL GAS PATTERN: There are a few persistent mildly dilated loops of small bowel seen in the central abdomen and pelvis. FREE AIR / EXTRALUMINAL GAS: None seen. ADDITIONAL FINDINGS: A nicole is seen in the proximal right femur. IMPRESSION: 1. A few persistent mildly dilated loops of small bowel are seen in the central abdomen and pelvis. Signer Name: Jo Hurt MD Signed: 04/27/2021 10:59 AM Workstation Name: [id number]
--- NOTE | 2021-04-27 16:58 | Progress Note ---
Assessment and Plan Assessment and plan: 66-year-old female with h/o hypertension, chronic bradycardia, hypothyroidism obesity ,arthritis, history of remote surgery for ruptured appendicitis, hysterectomy complicated with bowel perforation on 2019 now presents with a complaint of abdominal distention with nausea and bilious vomiting for 2-3 days. Last BM was [address] abdomen pelvis showed apparent moderate small bowel obstruction at the level of a small bowel anastomosis from previous surgery in the right lower quadrant. GS was consulted in the ER, patient placed on NG suction and being admitted for further evaluation and Mx. Acute small bowel obstruction Remote surgery for ruptured appendicitis and resection complicated by bowel perforation 2018 Hypertension Chronic sinus bradycardia on playground monitor Hypothyroidism with normal TSH Osteoarthritis Obesity Borderline hypokalemia Elevated D-dimer, VQ scan low probability and also negative for DVT. -Symptom improvement with n.p.o. and NG suction with hypoactive bowel sounds, hemodynamically stable -Continue n.p.o. and NG suction -Daily KUBs -Continue IV fluids and replace potassium -Monitor BP, as needed as needed hydralazine for SBP greater than 160 -IV morphine as needed for pain, Zofran as needed -Dr. Camejo consulted and following -SCD for DVT prophylaxis Discussed with the patient. History Interval history: Patient is alert without much discomfort. Stable vital signs with sinus bradycardia, 42-58. Patient reports chronic bradycardia. Currently on intermittent NG suction. Nausea better. No significant abdominal pains. Last BM 4 days ago. Passing some flatus. Patient has a history of abdominal surger ies. Hospitalist Physical - Constitutional Vitals: Temp Pulse Resp BP Pulse Ox 97.9 F 58 L 16 138/70 94 04/27/21 04:40 04/27/21 04:40 04/27/21 04:40 04/27/21 04:40 04/27/21 06:47 General appearance: Present: no acute distress, other (Mild obese.) - EENT Eyes: Present: PERRL, EOM intact. Absent: scleral icterus, conjunctival injection ENT: clear oral mucosa - Neck Neck: Present: supple - Respiratory Respiratory effort: normal Respiratory: bilateral: CTA - Cardiovascular Rhythm: other (Bradycardia) - Extremities Extremities: No edema - Abdominal General gastrointestinal: soft, non-tender, other - Integumentary Integumentary: Absent: rash - Psychiatric Psychiatric: appropriate mood/affect - Neurologic Neurologic: no focal deficits HEART Score - HEART Score EKG: Non-specific Age: 45-65 Risk factors: 1-2 risk factors Troponin: Troponin T < 0.010 ng/mL (0.00-0.029) 04/26/21 05:31 Troponin: < normal limit - Critical Actions Critical Actions: 0-3 pts:0.9-1.7%risk of adverse cardiac event.Candidate for discharge Results - Labs CBC & Chem 7: 04/28/21 13:37 04/28/21 13:37 Labs: Laboratory Last Values WBC 6.6 K/mm3 (4.5-11.0) 04/27/21 09:06 RBC 4.15 M/mm3 (3.65-5.03) 04/27/21 09:06 Hgb 12.6 gm/dl (10.1-14.3) 04/27/21 09:06 Hct 38.3 % (30.3-42.9) 04/27/21 09:06 MCV 92 fl (79-97) 04/27/21 09:06 MCH 30 pg (28-32) 04/27/21 09:06 MCHC 33 % (30-34) 04/27/21 09:06 RDW 13.6 % (13.2-15.2) 04/27/21 09:06 Plt Count 257 K/mm3 (140-440) 04/27/21 09:06 Lymph % (Auto) 29.2 % (13.4-35.0) 04/27/21 09:06 [place] % (Auto) 7.0 % (0.0-7.3) 04/27/21 09:06 Eos % (Auto) 1.1 % (0.0-4.3) 04/27/21 09:06 Baso % (Auto) 0.4 % (0.0-1.8) 04/27/21 09:06 Lymph # (Auto) 1.9 K/mm3 (1.2-5.4) 04/27/21 09:06 [place] # (Auto) 0.5 K/mm3 (0.0-0.8) 04/27/21 09:06 Eos # (Auto) 0.1 K/mm3 (0.0-0.4) 04/27/21 09:06 Baso # (Auto) 0.0 K/mm3 (0.0-0.1) 04/27/21 09:06 Seg Neutrophils % 62.3 % (40.0-70.0) 04/27/21 09:06 Seg Neutrophils # 4.1 K/mm3 (1.8-7.7) 04/27/21 09:06 PT 14.2 Sec. (12.2-14.9) 04/26/21 06:47 INR 1.05 (0.87-1.13) 04/26/21 06:47 D-Dimer 1276.72 ng/mlDDU (0-234) H 04/26/21 06:47 Sodium 141 mmol/L (137-145) 04/27/21 09:06 Potassium 3.2 mmol/L (3.6-5.0) L 04/27/21 09:06 Chloride 100.7 mmol/L (98-107) 04/27/21 09:06 Carbon Dioxide 24 mmol/L (22-30) 04/27/21 09:06 Anion Gap 20 mmol/L 04/27/21 09:06 BUN 13 mg/dL (7-17) 04/27/21 09:06 Creatinine 0.8 mg/dL (0.6-1.2) 04/27/21 09:06 Estimated GFR > 60 ml/min 04/27/21 09:06 BUN/Creatinine Ratio 16 % 04/27/21 09:06 Glucose 87 mg/dL (65-100) 04/27/21 09:06 POC Glucose 91 mg/dL (70-105) 04/26/21 21:36 Lactic Acid 1.30 mmol/L (0.7-2.0) 04/26/21 08:51 Calcium 9.3 mg/dL (8.4-10.2) 04/27/21 09:06 Magnesium 2.00 mg/dL (1.7-2.3) 04/26/21 05:31 Total Bilirubin 0.90 mg/dL (0.1-1.2) 04/26/21 05:31 AST 16 units/L (5-40) 04/26/21 05:31 ALT 7 units/L (7-56) 04/26/21 05:31 Alkaline Phosphatase 65 units/L (35-129) 04/26/21 05:31 Total Creatine Kinase 57 units/L (30-135) 04/26/21 05:31 Troponin T < 0.010 ng/mL (0.00-0.029) 04/26/21 05:31 Total Protein 7.4 g/dL (6.3-8.2) 04/26/21 05:31 Albumin 4.6 g/dL (3.9-5) 04/26/21 05:31 Albumin/Globulin Ratio 1.6 % 04/26/21 05:31 TSH 1.270 mlU/mL (0.270-4.200) 04/27/21 09:06 Free T4 1.33 ng/dL (0.76-1.46) 04/27/21 09:06 Urine Color Yellow (Yellow) 04/26/21 09:53 Urine Turbidity Clear (Clear) 04/26/21 09:53 Urine pH 7.0 (5.0-7.0) 04/26/21 09:53 Ur Specific [place] 1.059 (1.003-1.030) H 04/26/21 09:53 Urine Protein <15 mg/dl mg/dL (Negative) 04/26/21 09:53 Urine Glucose (UA) Neg mg/dL (Negative) 04/26/21 09:53 Urine Ketones 20 mg/dL (Negative) 04/26/21 09:53 Urine Blood Sm (Negative) 04/26/21 09:53 Urine Nitrite Neg (Negative) 04/26/21 09:53 Urine Bilirubin Neg (Negative) 04/26/21 09:53 Urine Urobilinogen 2.0 mg/dL (<2.0) 04/26/21 09:53 Ur Leukocyte Esterase Neg (Negative) 04/26/21 09:53 Urine WBC (Auto) 1.0 /HPF (0.0-6.0) 04/26/21 09:53 Urine RBC (Auto) 3.0 /HPF (0.0-6.0) 04/26/21 09:53 U Epithel Cells (Auto) 1.0 /HPF (0-13.0) 04/26/21 09:53 Urine Mucus Few /HPF 04/26/21 09:53 Microbiology: Microbiology 04/26/21 08:51 Peripheral/Venous Blood Culture - Preliminary NO GROWTH AFTER 24 HOURS 04/26/21 08:51 Peripheral/Venous Blood Culture - Preliminary NO GROWTH AFTER 24 HOURS Active Medications - Current Medications Current Medications: Generic Name Dose Route Start Last Admin Trade Name Freq PRN Reason Stop Dose Admin Enoxaparin Sodium 40 mg 04/27/21 22:00 Enoxaparin 40 Mg/0.4 Ml Inj SUB-Q QDAY@2200 BG Protocol Hydralazine HCl 5 mg 04/26/21 23:53 Hydralazine 20 Mg/1 Ml Inj IV Q30MIN PRN Hypertension Dextrose/Sodium Chloride 1,000 mls @ 75 mls/hr 04/26/21 23:45 04/27/21 05:40 D5ns IV 75 mls/hr DIRECT BG Administration Ondansetron HCl 4 mg 04/26/21 23:53 Ondansetron 4 Mg/2 Ml Inj IV Q8H PRN N/V unrelieved by Birgit Pantoprazole Sodium 40 mg 04/26/21 15:00 04/27/21 10:38 Pantoprazole 40 Mg Inj IV 40 mg QDAY BG Administration
--- NOTE | 2021-04-27 19:48 | Progress Note ---
Assessment and Plan - Patient Problems (1) Small bowel obstruction Current Visit: Yes Status: Acute Plan to address problem: 1) Add KCl, 40 meq/liter to IVF 2) AXR, CBC & BMP in the am Subjective Date of service: 04/27/21 Patient Reports: Positive: feels better, pain is less, flatus, no bowel movement Objective Vital Signs - 12hr 04/27/21 18:00 Temperature 99.1 F Pulse Rate 62 Respiratory 20 Rate Blood Pressure 186/55 O2 Sat by Pulse 98 Oximetry - Abdomen soft, bowel sounds hypoactive (NT, ND) - Labs 04/27/21 09:06 04/27/21 09:06 Diabetes panel 04/27/21 Range/Units 09:06 Sodium 141 (137-145) mmol/L Potassium 3.2 L (3.6-5.0) mmol/L Chloride 100.7 (98-107) mmol/L Carbon Dioxide 24 (22-30) mmol/L BUN 13 (7-17) mg/dL Creatinine 0.8 (0.6-1.2) mg/dL Glucose 87 (65-100) mg/dL Calcium 9.3 (8.4-10.2) mg/dL Thyroid panel 04/27/21 Range/Units 09:06 TSH 1.270 (0.270-4.200) mlU/mL Calcium panel 04/27/21 Range/Units 09:06 Calcium 9.3 (8.4-10.2) mg/dL Pituitary panel 04/27/21 04/27/21 Range/Units 09:06 09:06 Sodium 141 (137-145) mmol/L Potassium 3.2 L (3.6-5.0) mmol/L Chloride 100.7 (98-107) mmol/L Carbon Dioxide 24 (22-30) mmol/L BUN 13 (7-17) mg/dL Creatinine 0.8 (0.6-1.2) mg/dL Glucose 87 (65-100) mg/dL Calcium 9.3 (8.4-10.2) mg/dL TSH 1.270 (0.270-4.200) mlU/mL Adrenal panel 04/27/21 Range/Units 09:06 Sodium 141 (137-145) mmol/L Potassium 3.2 L (3.6-5.0) mmol/L Chloride 100.7 (98-107) mmol/L Carbon Dioxide 24 (22-30) mmol/L BUN 13 (7-17) mg/dL Creatinine 0.8 (0.6-1.2) mg/dL Glucose 87 (65-100) mg/dL Calcium 9.3 (8.4-10.2) mg/dL - Imaging Abdominal x-ray: report reviewed
[2021-04-27] MEDS ORDERED: POTASSIUM CHLORIDE IV SCH (20:00)
[2021-04-27] MEDS ORDERED: DEXTROSE IV SCH (20:00)
[2021-04-27] MEDS ORDERED: SODIUM CHLORIDE IV SCH (20:00)
[2021-04-27] MEDS: ENOXAPARIN 40 MG/0.4 ML INJ SUB-Q SCH (22:31)
[2021-04-28] MEDS: D5W/0.45% NACL/KCL 40 MEQ 40 MEQ/1,000 ML BAG IV SCH (02:59)
[2021-04-28] MEDS: PANTOPRAZOLE 40 MG INJ IV SCH (09:57)
--- NOTE | 2021-04-28 10:43 | XRay Report ---
Abdomen 2 views INDICATION: Abdominal pain IMPRESSION: The esophagogastric tube terminates within the mid stomach. The bowel gas pattern appears nonobstructive at this time. Moderate stool burden Signer Name: Ozzy Morales MD Signed: 04/28/2021 10:39 AM Workstation Name: [id number]
--- NOTE | 2021-04-28 10:48 | Progress Note ---
Assessment and Plan - Patient Problems (1) Small bowel obstruction Current Visit: Yes Status: Acute Plan to address problem: 1) Repeat BMP now 2) DC NG 3) CLD 4) CBC, BMP & AXR in the am Subjective Date of service: 04/28/21 Patient Reports: Positive: no new complaints, feels better, flatus, no bowel movement Objective Vital Signs - 12hr 04/28/21 04/28/21 00:35 05:06 Temperature 98.8 F 97.9 F Pulse Rate 66 59 L Blood Pressure 177/81 Blood Pressure 169/94 [Right] O2 Sat by Pulse 96 96 Oximetry - Abdomen soft, bowel sounds normal (NT, ND) - Labs 04/27/21 09:06 04/27/21 09:06 - Imaging Abdominal x-ray: report reviewed, image reviewed
[2021-04-28 15:13] LABS: Alanine Aminotransferase 9 units/L (7-56); Albumin 4.1 g/dL (3.9-5); BUN/Creatinine Ratio 11; Blood Urea Nitrogen 9 mg/dL (7-17); Hemolysis Index 0
[2021-04-28 15:21] LABS: Basophils % (Auto) 0.4 % (0.0-1.8); Eosinophils # (Auto) 0.1 K/mm3 (0.0-0.4); Hematocrit 38.4 % (30.3-42.9); Hemoglobin 13.3 gm/dl (10.1-14.3); Lymphocytes # (Auto) 1.4 K/mm3 (1.2-5.4); Lymphocytes % (Auto) 21.8 % (13.4-35.0); Mean Corpuscular HGB Conc 35 % (30-34); Mean Corpuscular Volume 91 fl (79-97); Monocytes # (Auto) 0.5 K/mm3 (0.0-0.8); Monocytes % (Auto) 7.4 % (0.0-7.3); Platelet Count 242 K/mm3 (140-440); Red Blood Count 4.21 M/mm3 (3.65-5.03); Red Cell Distribution Width 13.7 % (13.2-15.2)
--- NOTE | 2021-04-28 17:39 | Progress Note ---
Assessment and Plan Assessment and plan: 66-year-old female with h/o hypertension, chronic bradycardia, hypothyroidism obesity ,arthritis, history of remote surgery for ruptured appendicitis, hysterectomy complicated with bowel perforation on 2019 now presents with a complaint of abdominal distention with nausea and bilious vomiting for 2-3 days. Last BM was [address] abdomen pelvis showed apparent moderate small bowel obstruction at the level of a small bowel anastomosis from previous surgery in the right lower quadrant. GS was consulted in the ER, patient placed on NG suction and being admitted for further evaluation and Mx. 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 -Symptom improvement with n.p.o. and NG suction with improved bowel sounds, passing flatus but no BM, hemodynamically stable -KUB this morning is unremarkable with moderate stool burden -General surgery ordered clear liquid diet -Continue IV fluids and replace potassium -Monitor BP, as needed as needed hydralazine for SBP greater than 160 -IV morphine as needed for pain, Zofran as needed -Dr. Camejo consulted and following -SCD for DVT prophylaxis -Protonix for GI prophylaxis Discussed with the patient. History Interval history: Patient is alert without much discomfort. Stable vital signs with sinus bradycardia, 58-65. Patient reports chronic bradycardia. Currently on intermittent NG suction. Nausea better. No significant abdominal pains. Last BM 5 days ago. Passing some flatus. Patient has a history of abdominal surgeries. Hospitalist Physical - Constitutional Vitals: Temp Pulse Resp BP Pulse Ox 98.4 F 52 L 20 153/65 98 04/28/21 11:26 04/28/21 11:26 04/28/21 15:19 04/28/21 11:26 04/28/21 15:19 General appearance: Present: no acute distress, other (Alert and oriented. Obese.) - EENT Eyes: Present: PERRL, EOM intact. Absent: scleral icterus ENT: clear oral mucosa - Neck Neck: Present: supple - Respiratory Respiratory effort: normal Respiratory: bilateral: CTA - Cardiovascular Rhythm: other (Sinus bradycardia) - Extremities Extremities: No edema - Abdominal General gastrointestinal: soft, non-tender, other (Minimally distended. No masses. No guarding. Bowel sounds present.) - Integumentary Integumentary: Absent: rash - Psychiatric Psychiatric: appropriate mood/affect - Neurologic Neurologic: no focal deficits HEART Score - HEART Score EKG: Non-specific Age: 45-65 Risk factors: 1-2 risk factors Troponin: Troponin T < 0.010 ng/mL (0.00-0.029) 04/26/21 05:31 Troponin: < normal limit - Critical Actions Critical Actions: 0-3 pts:0.9-1.7%risk of adverse cardiac event.Candidate for discharge Results - Labs CBC & Chem 7: 04/28/21 13:37 04/28/21 13:37 Labs: Laboratory Last Values WBC 6.5 K/mm3 (4.5-11.0) 04/28/21 13:37 RBC 4.21 M/mm3 (3.65-5.03) 04/28/21 13:37 Hgb 13.3 gm/dl (10.1-14.3) 04/28/21 13:37 Hct 38.4 % (30.3-42.9) 04/28/21 13:37 MCV 91 fl (79-97) 04/28/21 13:37 MCH 32 pg (28-32) 04/28/21 13:37 MCHC 35 % (30-34) H 04/28/21 13:37 RDW 13.7 % (13.2-15.2) 04/28/21 13:37 Plt Count 242 K/mm3 (140-440) 04/28/21 13:37 Lymph % (Auto) 21.8 % (13.4-35.0) 04/28/21 13:37 [place] % (Auto) 7.4 % (0.0-7.3) H 04/28/21 13:37 Eos % (Auto) 1.0 % (0.0-4.3) 04/28/21 13:37 Baso % (Auto) 0.4 % (0.0-1.8) 04/28/21 13:37 Lymph # (Auto) 1.4 K/mm3 (1.2-5.4) 04/28/21 13:37 [place] # (Auto) 0.5 K/mm3 (0.0-0.8) 04/28/21 13:37 Eos # (Auto) 0.1 K/mm3 (0.0-0.4) 04/28/21 13:37 Baso # (Auto) 0.0 K/mm3 (0.0-0.1) 04/28/21 13:37 Seg Neutrophils % 69.4 % (40.0-70.0) 04/28/21 13:37 Seg Neutrophils # 4.5 K/mm3 (1.8-7.7) 04/28/21 13:37 PT 14.2 Sec. (12.2-14.9) 04/26/21 06:47 INR 1.05 (0.87-1.13) 04/26/21 06:47 D-Dimer 1276.72 ng/mlDDU (0-234) H 04/26/21 06:47 Sodium 140 mmol/L (137-145) 04/28/21 13:37 Potassium 3.2 mmol/L (3.6-5.0) L 04/28/21 13:37 Chloride 100.7 mmol/L (98-107) 04/28/21 13:37 Carbon Dioxide 26 mmol/L (22-30) 04/28/21 13:37 Anion Gap 17 mmol/L 04/28/21 13:37 BUN 9 mg/dL (7-17) 04/28/21 13:37 Creatinine 0.8 mg/dL (0.6-1.2) 04/28/21 13:37 Estimated GFR > 60 ml/min 04/28/21 13:37 BUN/Creatinine Ratio 11 % 04/28/21 13:37 Glucose 143 mg/dL (65-100) H 04/28/21 13:37 POC Glucose 91 mg/dL (70-105) 04/26/21 21:36 Lactic Acid 1.30 mmol/L (0.7-2.0) 04/26/21 08:51 Calcium 9.0 mg/dL (8.4-10.2) 04/28/21 13:37 Magnesium 1.80 mg/dL (1.7-2.3) 04/28/21 13:37 Total Bilirubin 1.40 mg/dL (0.1-1.2) H 04/28/21 13:37 AST 17 units/L (5-40) 04/28/21 13:37 ALT 9 units/L (7-56) 04/28/21 13:37 Alkaline Phosphatase 63 units/L (35-129) 04/28/21 13:37 Total Creatine Kinase 57 units/L (30-135) 04/26/21 05:31 Troponin T < 0.010 ng/mL (0.00-0.029) 04/26/21 05:31 Total Protein 7.8 g/dL (6.3-8.2) 04/28/21 13:37 Albumin 4.1 g/dL (3.9-5) 04/28/21 13:37 Albumin/Globulin Ratio 1.1 % 04/28/21 13:37 TSH 1.270 mlU/mL (0.270-4.200) 04/27/21 09:06 Free T4 1.33 ng/dL (0.76-1.46) 04/27/21 09:06 Urine Color Yellow (Yellow) 04/26/21 09:53 Urine Turbidity Clear (Clear) 04/26/21 09:53 Urine pH 7.0 (5.0-7.0) 04/26/21 09:53 Ur Specific [place] 1.059 (1.003-1.030) H 04/26/21 09:53 Urine Protein <15 mg/dl mg/dL (Negative) 04/26/21 09:53 Urine Glucose (UA) Neg mg/dL (Negative) 04/26/21 09:53 Urine Ketones 20 mg/dL (Negative) 04/26/21 09:53 Urine Blood Sm (Negative) 04/26/21 09:53 Urine Nitrite Neg (Negative) 04/26/21 09:53 Urine Bilirubin Neg (Negative) 04/26/21 09:53 Urine Urobilinogen 2.0 mg/dL (<2.0) 04/26/21 09:53 Ur Leukocyte Esterase Neg (Negative) 04/26/21 09:53 Urine WBC (Auto) 1.0 /HPF (0.0-6.0) 04/26/21 09:53 Urine RBC (Auto) 3.0 /HPF (0.0-6.0) 04/26/21 09:53 U Epithel Cells (Auto) 1.0 /HPF (0-13.0) 04/26/21 09:53 Urine Mucus Few /HPF 07/15/21 09:53 Microbiology: Microbiology 04/26/21 Unknown Urine,Clean Catch Urine Culture - Final NO GROWTH AFTER 48 HOURS 04/26/21 08:51 Peripheral/Venous Blood Culture - Preliminary NO GROWTH AFTER 48 HOURS 04/26/21 08:51 Peripheral/Venous Blood Culture - Preliminary NO GROWTH AFTER 48 HOURS Rocha/IV: Voiding Method Toilet Active Medications - Current Medications Current Medications: Generic Name Dose Route Start Last Admin Trade Name Freq PRN Reason Stop Dose Admin Enoxaparin Sodium 40 mg 04/27/21 22:00 04/27/21 22:31 Enoxaparin 40 Mg/0.4 Ml Inj SUB-Q Not Given QDAY@2200 BG Protocol Hydralazine HCl 5 mg 04/26/21 23:53 04/27/21 18:16 Hydralazine 20 Mg/1 Ml Inj IV 5 mg Q30MIN PRN Administration Hypertension Potassium Chloride/Dextrose/Sod Cl 40 meq in 1,000 mls @ 100 mls/hr 04/28/21 02:30 04/28/21 02:59 D5w/0.45% Nacl/Kcl 40 Meq IV 100 mls/hr DIRECT BG Administration Ondansetron HCl 4 mg 04/26/21 23:53 Ondansetron 4 Mg/2 Ml Inj IV Q8H PRN N/V unrelieved by Birgit Pantoprazole Sodium 40 mg 04/26/21 15:00 04/28/21 09:57 Pantoprazole 40 Mg Inj IV 40 mg QDAY BG Administration
[2021-04-28] MEDS: ENOXAPARIN 40 MG/0.4 ML INJ SUB-Q SCH ×2 (22:13→22:15)
[2021-04-28] MEDS ORDERED: PHENOL 1.4% 177 ML BOTTLE MM PRN (23:46)
[2021-04-29] MEDS ORDERED: POTASSIUM CHLORIDE 20 MEQ PACKET PO ONE (03:03)
[2021-04-29] MEDS: POTASSIUM CHLORIDE 10 MEQ 10 MEQ/100 ML BAG IV SCH (03:05)
[2021-04-29 06:42] LABS: Basophils % (Auto) 0.6 % (0.0-1.8); Eosinophils # (Auto) 0.1 K/mm3 (0.0-0.4); Eosinophils % (Auto) 2.2 % (0.0-4.3); Hematocrit 34.7 % (30.3-42.9); Hemoglobin 12.2 gm/dl (10.1-14.3); Lymphocytes # (Auto) 1.6 K/mm3 (1.2-5.4); Lymphocytes % (Auto) 31.3 % (13.4-35.0); Mean Corpuscular HGB Conc 35 % (30-34); Mean Corpuscular Volume 92 fl (79-97); Monocytes # (Auto) 0.5 K/mm3 (0.0-0.8); Monocytes % (Auto) 10.4 % (0.0-7.3); Platelet Count 214 K/mm3 (140-440); Red Blood Count 3.76 M/mm3 (3.65-5.03); Red Cell Distribution Width 13.2 % (13.2-15.2)
[2021-04-29 07:08] LABS: Alanine Aminotransferase 7 units/L (7-56); Albumin 3.9 g/dL (3.9-5); BUN/Creatinine Ratio 9; Blood Urea Nitrogen 7 mg/dL (7-17); Calcium 8.8 mg/dL (8.4-10.2); Hemolysis Index 1
--- NOTE | 2021-04-29 09:36 | XRay Report ---
ABDOMEN 1 VIEW(S) INDICATION / CLINICAL INFORMATION: sbo. COMPARISON: None available. FINDINGS: TUBES / LINES: NG tube tip projects over the body the stomach. BOWEL GAS PATTERN/EXTRALUMINAL GAS: No bowel distention. Mild constipation. No pneumatosis or seconda ry signs of free air. ADDITIONAL FINDINGS: No significant additional findings. IMPRESSION: 1. No acute findings. Signer Name: Elliott Lazo MD Signed: 04/29/2021 9:32 AM Workstation Name: [id number]
--- NOTE | 2021-04-29 11:23 | Progress Note ---
Assessment and Plan - Patient Problems (1) Small bowel obstruction Current Visit: Yes Status: Acute Plan to address problem: 1) DC NG 2) CLD Subjective Date of service: 04/29/21 Patient Reports: Positive: no new complaints, feels better, flatus Objective Vital Signs - 12hr 04/29/21 04/29/21 04/29/21 04:50 09:56 09:58 Temperature 98.1 F 98.7 F Pulse Rate 59 L 68 Respiratory 16 16 Rate Blood Pressure 127/73 117/72 O2 Sat by Pulse 94 Oximetry - Abdomen soft, bowel sounds normal (NT, ND) - Labs 04/29/21 06:01 04/29/21 06:01 Diabetes panel 04/28/21 04/29/21 Range/Units 13:37 06:01 Sodium 140 140 (137-145) mmol/L Potassium 3.2 L 3.9 D (3.6-5.0) mmol/L Chloride 100.7 103.6 (98-107) mmol/L Carbon Dioxide 26 26 (22-30) mmol/L BUN 9 7 (7-17) mg/dL Creatinine 0.8 0.8 (0.6-1.2) mg/dL Glucose 143 H 85 (65-100) mg/dL Calcium 9.0 8.8 (8.4-10.2) mg/dL AST 17 15 (5-40) units/L ALT 9 7 (7-56) units/L Alkaline Phosphatase 63 57 (35-129) units/L Total Protein 7.8 7.1 (6.3-8.2) g/dL Albumin 4.1 3.9 (3.9-5) g/dL Calcium panel 04/28/21 04/29/21 Range/Units 13:37 06:01 Calcium 9.0 8.8 (8.4-10.2) mg/dL Albumin 4.1 3.9 (3.9-5) g/dL Pituitary panel 04/28/21 04/29/21 Range/Units 13:37 06:01 Sodium 140 140 (137-145) mmol/L Potassium 3.2 L 3.9 D (3.6-5.0) mmol/L Chloride 100.7 103.6 (98-107) mmol/L Carbon Dioxide 26 26 (22-30) mmol/L BUN 9 7 (7-17) mg/dL Creatinine 0.8 0.8 (0.6-1.2) mg/dL Glucose 143 H 85 (65-100) mg/dL Calcium 9.0 8.8 (8.4-10.2) mg/dL Adrenal panel 04/28/21 04/29/21 Range/Units 13:37 06:01 Sodium 140 140 (137-145) mmol/L Potassium 3.2 L 3.9 D (3.6-5.0) mmol/L Chloride 100.7 103.6 (98-107) mmol/L Carbon Dioxide 26 26 (22-30) mmol/L BUN 9 7 (7-17) mg/dL Creatinine 0.8 0.8 (0.6-1.2) mg/dL Glucose 143 H 85 (65-100) mg/dL Calcium 9.0 8.8 (8.4-10.2) mg/dL Total Bilirubin 1.40 H 1.50 H (0.1-1.2) mg/dL AST 17 15 (5-40) units/L ALT 9 7 (7-56) units/L Alkaline Phosphatase 63 57 (35-129) units/L Total Protein 7.8 7.1 (6.3-8.2) g/dL Albumin 4.1 3.9 (3.9-5) g/dL - Imaging Abdominal x-ray: report reviewed
--- NOTE | 2021-04-29 14:11 | Progress Note ---
Assessment and Plan Assessment and plan: 66-year-old female with h/o hypertension, chronic bradycardia, hypothyroidism obesity ,arthritis, history of remote surgery for ruptured appendicitis, hysterectomy complicated with bowel perforation on 2019 now presents with a complaint of abdominal distention with nausea and bilious vomiting for 2-3 days. Last BM was [address] abdomen pelvis showed apparent moderate small bowel obstruction at the level of a small bowel anastomosis from previous surgery in the right lower quadrant. GS was consulted in the ER, patient placed on NG suction and being admitted for further evaluation and Mx. Acute small bowel obstruction Remote surgery for ruptured appendicitis and hysterectomy complicated by bowel perforation 2018 Hypertension Chronic sinus bradycardia on desk monitor Hypothyroidism with normal TSH Osteoarthritis Obesity Borderline hypokalemia, dilutional from IV fluids, being corrected Elevated D-dimer, VQ scan low probability and also negative for DVT. -Off NG suction since yesterday, tolerating clear liquids and Jell-O since yesterday -Passing flatus rectally frequently with normal bowel sounds -Advance diet as tolerated -Continue IV fluids and replace potassium -Monitor BP, as needed as needed hydralazine for SBP greater than 160 -Dr. Camejo consulted and following -[facility] [place] for DVT prophylaxis -Protonix for GI prophylaxis Discussed with the patient. History Interval history: Patient is tolerating clear liquids and Jell-O since yesterday. Off NG suction but NG tube in place. Passing more flatus electively and has bowel sounds. No abdominal pains. However no BM. The last one was about 5 days ago. Afebrile. Alert and out of bed. Stable vital signs with sinus bradycardia, 58-65. Patient reports chronic bradycardia. Currently on intermittent NG suction. Hospitalist Physical - Constitutional Vitals: Temp Pulse Resp BP Pulse Ox 98.7 F 68 16 117/72 94 04/29/21 09:56 04/29/21 09:58 04/29/21 09:56 04/29/21 09:56 04/29/21 04:50 General appearance: Present: no acute distress, other (Alert and oriented. Obese.) - EENT Eyes: Present: PERRL, EOM intact ENT: clear oral mucosa - Neck Neck: Present: supple - Respiratory Respiratory effort: normal Respiratory: bilateral: CTA - Cardiovascular Rhythm: other (Bradycardia) - Extremities Extremities: No edema - Abdominal General gastrointestinal: soft, non-tender, non-distended, normal bowel sounds - Integumentary Integumentary: Absent: rash - Psychiatric Psychiatric: appropriate mood/affect - Neurologic Neurologic: no focal deficits HEART Score - HEART Score EKG: Non-specific Age: 45-65 Risk factors: 1-2 risk factors Troponin: Troponin T < 0.010 ng/mL (0.00-0.029) 04/26/21 05:31 Troponin: < normal limit - Critical Actions Critical Actions: 0-3 pts:0.9-1.7%risk of adverse cardiac event.Candidate for discharge Results - Labs CBC & Chem 7: 04/29/21 06:01 04/29/21 06:01 Labs: Laboratory Last Values WBC 5.2 K/mm3 (4.5-11.0) 04/29/21 06:01 RBC 3.76 M/mm3 (3.65-5.03) 04/29/21 06:01 Hgb 12.2 gm/dl (10.1-14.3) 04/29/21 06:01 Hct 34.7 % (30.3-42.9) 04/29/21 06:01 MCV 92 fl (79-97) 04/29/21 06:01 MCH 33 pg (28-32) H 04/29/21 06:01 MCHC 35 % (30-34) H 04/29/21 06:01 RDW 13.2 % (13.2-15.2) 04/29/21 06:01 Plt Count 214 K/mm3 (140-440) 04/29/21 06:01 Lymph % (Auto) 31.3 % (13.4-35.0) 04/29/21 06:01 [place] % (Auto) 10.4 % (0.0-7.3) H 04/29/21 06:01 Eos % (Auto) 2.2 % (0.0-4.3) 04/29/21 06:01 Baso % (Auto) 0.6 % (0.0-1.8) 04/29/21 06:01 Lymph # (Auto) 1.6 K/mm3 (1.2-5.4) 04/29/21 06:01 [place] # (Auto) 0.5 K/mm3 (0.0-0.8) 04/29/21 06:01 Eos # (Auto) 0.1 K/mm3 (0.0-0.4) 04/29/21 06:01 Baso # (Auto) 0.0 K/mm3 (0.0-0.1) 04/29/21 06:01 Seg Neutrophils % 55.5 % (40.0-70.0) 04/29/21 06:01 Seg Neutrophils # 2.9 K/mm3 (1.8-7.7) 04/29/21 06:01 PT 14.2 Sec. (12.2-14.9) 04/26/21 06:47 INR 1.05 (0.87-1.13) 04/26/21 06:47 D-Dimer 1276.72 ng/mlDDU (0-234) H 04/26/21 06:47 Sodium 140 mmol/L (137-145) 04/29/21 06:01 Potassium 3.9 mmol/L (3.6-5.0) D 04/29/21 06:01 Chloride 103.6 mmol/L (98-107) 04/29/21 06:01 Carbon Dioxide 26 mmol/L (22-30) 04/29/21 06:01 Anion Gap 14 mmol/L 04/29/21 06:01 BUN 7 mg/dL (7-17) 04/29/21 06:01 Creatinine 0.8 mg/dL (0.6-1.2) 04/29/21 06:01 Estimated GFR > 60 ml/min 04/29/21 06:01 BUN/Creatinine Ratio 9 % 04/29/21 06:01 Glucose 85 mg/dL (65-100) 04/29/21 06:01 POC Glucose 91 mg/dL (70-105) 04/26/21 21:36 Lactic Acid 1.30 mmol/L (0.7-2.0) 04/26/21 08:51 Calcium 8.8 mg/dL (8.4-10.2) 04/29/21 06:01 Magnesium 1.80 mg/dL (1.7-2.3) 04/29/21 06:01 Total Bilirubin 1.50 mg/dL (0.1-1.2) H 04/29/21 06:01 AST 15 units/L (5-40) 04/29/21 06:01 ALT 7 units/L (7-56) 04/29/21 06:01 Alkaline Phosphatase 57 units/L (35-129) 04/29/21 06:01 Total Creatine Kinase 57 units/L (30-135) 04/26/21 05:31 Troponin T < 0.010 ng/mL (0.00-0.029) 04/26/21 05:31 Total Protein 7.1 g/dL (6.3-8.2) 04/29/21 06:01 Albumin 3.9 g/dL (3.9-5) 04/29/21 06:01 Albumin/Globulin Ratio 1.2 % 04/29/21 06:01 TSH 1.270 mlU/mL (0.270-4.200) 04/27/21 09:06 Free T4 1.33 ng/dL (0.76-1.46) 04/27/21 09:06 Urine Color Yellow (Yellow) 04/26/21 09:53 Urine Turbidity Clear (Clear) 04/26/21 09:53 Urine pH 7.0 (5.0-7.0) 04/26/21 09:53 Ur Specific [place] 1.059 (1.003-1.030) H 04/26/21 09:53 Urine Protein <15 mg/dl mg/dL (Negative) 04/26/21 09:53 Urine Glucose (UA) Neg mg/dL (Negative) 04/26/21 09:53 Urine Ketones 20 mg/dL (Negative) 04/26/21 09:53 Urine Blood Sm (Negative) 04/26/21 09:53 Urine Nitrite Neg (Negative) 04/26/21 09:53 Urine Bilirubin Neg (Negative) 04/26/21 09:53 Urine Urobilinogen 2.0 mg/dL (<2.0) 04/26/21 09:53 Ur Leukocyte Esterase Neg (Negative) 04/26/21 09:53 Urine WBC (Auto) 1.0 /HPF (0.0-6.0) 04/26/21 09:53 Urine RBC (Auto) 3.0 /HPF (0.0-6.0) 04/26/21 09:53 U Epithel Cells (Auto) 1.0 /HPF (0-13.0) 04/26/21 09:53 Urine Mucus Few /HPF 04/26/21 09:53 Microbiology: Microbiology 04/26/21 08:51 Peripheral/Venous Blood Culture - Preliminary NO GROWTH AFTER 72 HOURS 04/26/21 08:51 Peripheral/Venous Blood Culture - Preliminary NO GROWTH AFTER 72 HOURS 04/26/21 Unknown Urine,Clean Catch Urine Culture - Final NO GROWTH AFTER 48 HOURS Rocha/IV: Voiding Method Toilet Active Medications - Current Medications Current Medications: Generic Name Dose Route Start Last Admin Trade Name Freq PRN Reason Stop Dose Admin Enoxaparin Sodium 40 mg 04/27/21 22:00 04/28/21 22:15 Enoxaparin 40 Mg/0.4 Ml Inj SUB-Q Not Given QDAY@2200 BG Protocol Hydralazine HCl 5 mg 04/26/21 23:53 04/27/21 18:16 Hydralazine 20 Mg/1 Ml Inj IV 5 mg Q30MIN PRN Administration Hypertension Potassium Chloride/Dextrose/Sod Cl 40 meq in 1,000 mls @ 100 mls/hr 04/28/21 02:30 04/28/21 02:59 D5w/0.45% Nacl/Kcl 40 Meq IV 100 mls/hr DIRECT BG Administration Ondansetron HCl 4 mg 04/26/21 23:53 Ondansetron 4 Mg/2 Ml Inj IV Q8H PRN N/V unrelieved by Birgit Pantoprazole Sodium 40 mg 04/26/21 15:00 04/28/21 09:57 Pantoprazole 40 Mg Inj IV 40 mg QDAY BG Administration Phenol 1 spray 04/28/21 23:46 04/28/21 23:51 Phenol 1.4% 177 Ml Bottle MM 1 spray PRN PRN Administration Sore Throat
[2021-04-29] MEDS: PANTOPRAZOLE 40 MG INJ IV SCH (14:55)
[2021-04-29] MEDS: D5W/0.45% NACL/KCL 40 MEQ 40 MEQ/1,000 ML BAG IV SCH (21:36)
[2021-04-29] MEDS: ENOXAPARIN 40 MG/0.4 ML INJ SUB-Q SCH ×2 (21:36→21:44)
[2021-04-30] MEDS: D5W/0.45% NACL/KCL 40 MEQ 40 MEQ/1,000 ML BAG IV SCH (06:00)
[2021-04-30 06:36] LABS: Alanine Aminotransferase 6 units/L (7-56); Albumin 3.8 g/dL (3.9-5); Blood Urea Nitrogen 4 mg/dL (7-17); Calcium 9.1 mg/dL (8.4-10.2); Hemolysis Index 1
[2021-04-30 06:40] LABS: BUN/Creatinine Ratio 6
[2021-04-30] MEDS: PANTOPRAZOLE 40 MG INJ IV SCH (09:38)
--- NOTE | 2021-04-30 11:05 | Progress Note ---
Assessment and Plan - Patient Problems (1) Small bowel obstruction Current Visit: Yes Status: Acute Plan to address problem: 1) FLD 2) Can be discharged tomorrow if no problems Subjective Date of service: 04/30/21 Patient Reports: Positive: no new complaints, feels better, tolerating liquids well, flatus Objective Vital Signs - 12hr 04/30/21 04/30/21 01:00 05:02 Temperature 98.4 F Pulse Rate 46 L Respiratory 20 Rate Blood Pressure 120/62 O2 Sat by Pulse 96 94 Oximetry - Abdomen soft, bowel sounds normal (NT) - Labs 04/29/21 06:01 04/30/21 05:34 Diabetes panel 04/30/21 Range/Units 05:34 Sodium 141 (137-145) mmol/L Potassium 3.9 (3.6-5.0) mmol/L Chloride 104.8 (98-107) mmol/L Carbon Dioxide 29 (22-30) mmol/L BUN 4 L (7-17) mg/dL Creatinine 0.7 (0.6-1.2) mg/dL Glucose 112 H (65-100) mg/dL Calcium 9.1 (8.4-10.2) mg/dL AST 16 (5-40) units/L ALT 6 L (7-56) units/L Alkaline Phosphatase 54 (35-129) units/L Total Protein 6.4 (6.3-8.2) g/dL Albumin 3.8 L (3.9-5) g/dL Calcium panel 04/30/21 Range/Units 05:34 Calcium 9.1 (8.4-10.2) mg/dL Albumin 3.8 L (3.9-5) g/dL Pituitary panel 04/30/21 Range/Units 05:34 Sodium 141 (137-145) mmol/L Potassium 3.9 (3.6-5.0) mmol/L Chloride 104.8 (98-107) mmol/L Carbon Dioxide 29 (22-30) mmol/L BUN 4 L (7-17) mg/dL Creatinine 0.7 (0.6-1.2) mg/dL Glucose 112 H (65-100) mg/dL Calcium 9.1 (8.4-10.2) mg/dL Adrenal panel 04/30/21 Range/Units 05:34 Sodium 141 (137-145) mmol/L Potassium 3.9 (3.6-5.0) mmol/L Chloride 104.8 (98-107) mmol/L Carbon Dioxide 29 (22-30) mmol/L BUN 4 L (7-17) mg/dL Creatinine 0.7 (0.6-1.2) mg/dL Glucose 112 H (65-100) mg/dL Calcium 9.1 (8.4-10.2) mg/dL Total Bilirubin 1.40 H (0.1-1.2) mg/dL AST 16 (5-40) units/L ALT 6 L (7-56) units/L Alkaline Phosphatase 54 (35-129) units/L Total Protein 6.4 (6.3-8.2) g/dL Albumin 3.8 L (3.9-5) g/dL
--- NOTE | 2021-04-30 17:46 | Progress Note ---
Assessment and Plan Assessment and plan: 66-year-old female with h/o hypertension, chronic bradycardia, hypothyroidism obesity ,arthritis, history of remote surgery for ruptured appendicitis, hysterectomy complicated with bowel perforation on 2019 now presents with a complaint of abdominal distention with nausea and bilious vomiting for 2-3 days. Last BM was [address] abdomen pelvis showed apparent moderate small bowel obstruction at the level of a small bowel anastomosis from previous surgery in the right lower quadrant. GS was consulted in the ER, patient placed on NG suction and being admitted for further evaluation and Mx. Acute small bowel obstruction Remote surgery for ruptured appendicitis and hysterectomy complicated by bowel perforation 2018 Hypertension Chronic sinus bradycardia on gambling monitor Hypothyroidism with normal TSH Osteoarthritis Obesity Borderline hypokalemia, dilutional from IV fluids, being corrected Elevated D-dimer, VQ scan low probability and also negative for DVT. -Off NG suction since , tolerating clear liquids and Jell-O since yesterday -Passing flatus rectally frequently with normal bowel sounds, had a solid BM yesterday. -Advance diet as tolerated -Continue IV fluids and replace potassium -Dr. Camejo consulted and following -SCD for DVT prophylaxis -Protonix for GI prophylaxis Disposition: Possible discharge tomorrow if tolerates soft solid diet, per general surgery recommendations Discussed with the patient. History Interval history: Patient is tolerating clear liquids, passing flatus rectally, had a solid stool yesterday, more like constipated. No nausea or abdominal pains. Afebrile. Alert and out of bed. Stable vital signs with sinus bradycardia, 58-65. Patient reports chronic bradycardia. Advancing diet today. General surgery following. Hospitalist Physical - Constitutional Vitals: Temp Pulse Resp BP Pulse Ox 98.1 F 57 L 22 110/73 95 04/30/21 11:59 04/30/21 11:59 04/30/21 11:59 04/30/21 11:59 04/30/21 11:59 General appearance: Present: no acute distress, other (Alert and oriented. Obese.) - EENT Eyes: Present: PERRL, EOM intact ENT: clear oral mucosa - Neck Neck: Present: supple - Respiratory Respiratory effort: normal Respiratory: bilateral: CTA - Cardiovascular Heart Sounds: Present: S1 & S2 - Extremities Extremities: No edema - Abdominal General gastrointestinal: soft, non-tender, non-distended, normal bowel sounds, no mass - Integumentary Integumentary: Absent: rash - Psychiatric Psychiatric: appropriate mood/affect - Neurologic Neurologic: no focal deficits HEART Score - HEART Score EKG: Non-specific Age: 45-65 Risk factors: 1-2 risk factors Troponin: Troponin T < 0.010 ng/mL (0.00-0.029) 04/26/21 05:31 Troponin: < normal limit - Critical Actions Critical Actions: 0-3 pts:0.9-1.7%risk of adverse cardiac event.Candidate for discharge Results - Labs CBC & Chem 7: 04/29/21 06:01 04/30/21 05:34 Labs: Laboratory Last Values WBC 5.2 K/mm3 (4.5-11.0) 04/29/21 06:01 RBC 3.76 M/mm3 (3.65-5.03) 04/29/21 06:01 Hgb 12.2 gm/dl (10.1-14.3) 04/29/21 06:01 Hct 34.7 % (30.3-42.9) 04/29/21 06:01 MCV 92 fl (79-97) 04/29/21 06:01 MCH 33 pg (28-32) H 04/29/21 06:01 MCHC 35 % (30-34) H 04/29/21 06:01 RDW 13.2 % (13.2-15.2) 04/29/21 06:01 Plt Count 214 K/mm3 (140-440) 04/29/21 06:01 Lymph % (Auto) 31.3 % (13.4-35.0) 04/29/21 06:01 [place] % (Auto) 10.4 % (0.0-7.3) H 04/29/21 06:01 Eos % (Auto) 2.2 % (0.0-4.3) 04/29/21 06:01 Baso % (Auto) 0.6 % (0.0-1.8) 04/29/21 06:01 Lymph # (Auto) 1.6 K/mm3 (1.2-5.4) 04/29/21 06:01 [place] # (Auto) 0.5 K/mm3 (0.0-0.8) 04/29/21 06:01 Eos # (Auto) 0.1 K/mm3 (0.0-0.4) 04/29/21 06:01 Baso # (Auto) 0.0 K/mm3 (0.0-0.1) 04/29/21 06:01 Seg Neutrophils % 55.5 % (40.0-70.0) 04/29/21 06:01 Seg Neutrophils # 2.9 K/mm3 (1.8-7.7) 04/29/21 06:01 PT 14.2 Sec. (12.2-14.9) 04/26/21 06:47 INR 1.05 (0.87-1.13) 04/26/21 06:47 D-Dimer 1276.72 ng/mlDDU (0-234) H 04/26/21 06:47 Sodium 141 mmol/L (137-145) 04/30/21 05:34 Potassium 3.9 mmol/L (3.6-5.0) 04/30/21 05:34 Chloride 104.8 mmol/L (98-107) 04/30/21 05:34 Carbon Dioxide 29 mmol/L (22-30) 04/30/21 05:34 Anion Gap 11 mmol/L 04/30/21 05:34 BUN 4 mg/dL (7-17) L 04/30/21 05:34 Creatinine 0.7 mg/dL (0.6-1.2) 04/30/21 05:34 Estimated GFR > 60 ml/min 04/30/21 05:34 BUN/Creatinine Ratio 6 % 04/30/21 05:34 Glucose 112 mg/dL (65-100) H 04/30/21 05:34 POC Glucose 91 mg/dL (70-105) 04/26/21 21:36 Lactic Acid 1.30 mmol/L (0.7-2.0) 04/26/21 08:51 Calcium 9.1 mg/dL (8.4-10.2) 04/30/21 05:34 Magnesium 1.80 mg/dL (1.7-2.3) 04/30/21 05:34 Total Bilirubin 1.40 mg/dL (0.1-1.2) H 04/30/21 05:34 AST 16 units/L (5-40) 04/30/21 05:34 ALT 6 units/L (7-56) L 04/30/21 05:34 Alkaline Phosphatase 54 units/L (35-129) 04/30/21 05:34 Total Creatine Kinase 57 units/L (30-135) 04/26/21 05:31 Troponin T < 0.010 ng/mL (0.00-0.029) 04/26/21 05:31 Total Protein 6.4 g/dL (6.3-8.2) 04/30/21 05:34 Albumin 3.8 g/dL (3.9-5) L 04/30/21 05:34 Albumin/Globulin Ratio 1.5 % 04/30/21 05:34 TSH 1.270 mlU/mL (0.270-4.200) 04/27/21 09:06 Free T4 1.33 ng/dL (0.76-1.46) 04/27/21 09:06 Urine Color Yellow (Yellow) 04/26/21 09:53 Urine Turbidity Clear (Clear) 04/26/21 09:53 Urine pH 7.0 (5.0-7.0) 04/26/21 09:53 Ur Specific [place] 1.059 (1.003-1.030) H 04/26/21 09:53 Urine Protein <15 mg/dl mg/dL (Negative) 04/26/21 09:53 Urine Glucose (UA) Neg mg/dL (Negative) 04/26/21 09:53 Urine Ketones 20 mg/dL (Negative) 04/26/21 09:53 Urine Blood Sm (Negative) 04/26/21 09:53 Urine Nitrite Neg (Negative) 04/26/21 09:53 Urine Bilirubin Neg (Negative) 04/26/21 09:53 Urine Urobilinogen 2.0 mg/dL (<2.0) 04/26/21 09:53 Ur Leukocyte Esterase Neg (Negative) 04/26/21 09:53 Urine WBC (Auto) 1.0 /HPF (0.0-6.0) 04/26/21 09:53 Urine RBC (Auto) 3.0 /HPF (0.0-6.0) 04/26/21 09:53 U Epithel Cells (Auto) 1.0 /HPF (0-13.0) 04/26/21 09:53 Urine Mucus Few /HPF 04/26/21 09:53 Microbiology: Microbiology 04/26/21 08:51 Peripheral/Venous Blood Culture - Preliminary NO GROWTH AFTER 4 DAYS 04/26/21 08:51 Peripheral/Venous Blood Culture - Preliminary NO GROWTH AFTER 4 DAYS Rocha/IV: Voiding Method Toilet Active Medications - Current Medications Current Medications: Generic Name Dose Route Start Last Admin Trade Name Freq PRN Reason Stop Dose Admin Enoxaparin Sodium 40 mg 04/27/21 22:00 04/29/21 21:44 Enoxaparin 40 Mg/0.4 Ml Inj SUB-Q Not Given QDAY@2200 [facility] Protocol Hydralazine HCl 5 mg 04/26/21 23:53 04/27/21 18:16 Hydralazine 20 Mg/1 Ml Inj IV 5 mg Q30MIN PRN Administration Hypertension Potassium Chloride/Dextrose/Sod Cl 40 meq in 1,000 mls @ 100 mls/hr 04/28/21 02:30 04/30/21 06:00 D5w/0.45% Nacl/Kcl 40 Meq IV 100 mls/hr DIRECT BG Administration Ondansetron HCl 4 mg 04/26/21 23:53 Ondansetron 4 Mg/2 Ml Inj IV Q8H PRN N/V unrelieved by Birgit Pantoprazole Sodium 40 mg 04/26/21 15:00 04/30/21 09:38 Pantoprazole 40 Mg Inj IV 40 mg QDAY BG Administration Phenol 1 spray 04/28/21 23:46 04/28/21 23:51 Phenol 1.4% 177 Ml Bottle MM 1 spray PRN PRN Administration Sore Throat
[2021-04-30] MEDS: ENOXAPARIN 40 MG/0.4 ML INJ SUB-Q SCH (21:15)
[2021-05-01] MEDS: D5W/0.45% NACL/KCL 40 MEQ 40 MEQ/1,000 ML BAG IV SCH (03:12)
[2021-05-01 04:42] VITALS: BP 130/57
[2021-05-01 08:25] LABS: Alanine Aminotransferase 8 units/L (7-56); Albumin 3.7 g/dL (3.9-5); Blood Urea Nitrogen 3 mg/dL (7-17); Calcium 9.3 mg/dL (8.4-10.2); Hemolysis Index 4
[2021-05-01 08:47] LABS: BUN/Creatinine Ratio 4
[2021-05-01] MEDS ORDERED: PANTOPRAZOLE 40 MG TAB PO SCH (10:00)
--- NOTE | 2021-05-01 10:53 | Discharge Summary ---
Providers - Providers Date of Admission: 04/27/21 11:16 Attending physician: KASHIF LEÓN MD 04/26/21 08:51 Consult to Physician [CONS] Urgent Comment: Consulting Provider: KEVIN CAMEJO Physician Instructions: Reason For Exam: sbo Primary care physician: [employer] Hospitalization Reason for admission: SBO Condition: Stable Hospital course: 66-year-old female with h/o hypertension, chronic bradycardia, hypothyroidism obesity ,arthritis, history of remote surgery for ruptured appendicitis, hysterectomy complicated with bowel perforation on 2018 now presents with a complaint of abdominal distention with nausea and bilious vomiting for 2-3 days. Last BM was [address] abdomen pelvis showed apparent moderate small bowel obstruction at the level of a small bowel anastomosis from previous surgery in the right lower quadrant. GS was consulted in the ER, patient placed on NG suction and being admitted for further evaluation and Mx. Acute small bowel obstruction Remote surgery for ruptured appendicitis and hysterectomy complicated by bowel perforation 2018 Hypertension Chronic sinus bradycardia on surveillance monitor Hypothyroidism with normal TSH Osteoarthritis Obesity Borderline hypokalemia, dilutional from IV fluids, being corrected Elevated D-dimer, VQ scan low probability and also negative for DVT. -Off NG suction since , tolerating clear liquids and Jell-O since yesterday -Passing flatus rectally frequently with normal bowel sounds, had a solid BM yesterday. -Advance diet as tolerated -Continue IV fluids and replace potassium -Dr. Camejo consulted and following -SCD for DVT prophylaxis -Protonix for GI prophylaxis 05/01 Patient is tolerating clear liquids, passing flatus rectally, had a solid stool, No nausea or abdominal pains. Afebrile. Alert and out of bed. Stable vital signs with sinus bradycardia, 58-65. Patient reports chronic bradycardia. Advancing diet and continues to tolerated. advised to remain with soft diet for about 1 week and follow with PCP and surgeon. She verablized understanding I also discussed need to avoid opioid drugs and the risk associated. Disposition: TO HOME OR SELFCARE Final Discharge Diagnosis (Prints w/discharge instructions): SMALL BOWEL OBSTRUCTION Time spent for discharge: 35 MINS Core Measure Documentation - Palliative Care Palliative Care/ Comfort Measures: Not Applicable - Core Measures Any of the following diagnoses?: none Exam - Physical Exam Narrative exam: General appearance: Present: no acute distress, Obese. - EENT Eyes: Present: PERRL, EOM intact ENT: clear oral mucosa - Neck Neck: Present: supple - Respiratory Respiratory effort: normal Respiratory: bilateral: CTA - Cardiovascular Heart Sounds: Present: S1 & S2 - Extremities Extremities: No edema - Abdominal General gastrointestinal: soft, non-tender, non-distended, normal bowel sounds, no mass - Integumentary Integumentary: Absent: rash - Psychiatric Psychiatric: appropriate mood/affect - Neurologic Neurologic: no focal deficits - Constitutional Vitals: Temp Pulse Resp BP Pulse Ox 98.5 F 52 L 18 130/57 96 05/01/21 04:41 05/01/21 04:41 05/01/21 04:41 05/01/21 04:41 05/01/21 04:41 Plan Activity: advance as tolerated, fall precautions Diet: low fat (soft diet x 1 week) Special Instructions: record daily weights, record daily BP diary Follow up with: PRIMARY CARE, [Primary Care Provider] - 3-5 Days KEVIN CAMEJO MD [Staff Physician] - 7 Days Prescriptions: Pantoprazole [Protonix TAB] 40 mg PO QDAC #30 tablet
[2021-05-02] MEDS ORDERED: LASIX 40 MG PO SCH (10:00)
[2021-05-02] MEDS ORDERED: FUROSEMIDE 40 MG TAB PO SCH (10:00)
[2021-05-02] MEDS ORDERED: LEVOTHYROXINE 75 MCG TAB PO SCH (10:00)
== END 2021-05-01 14:50 | disposition home health service (06) | DRG 390 ==
LOC: ED 04:17 → 3A 09:01 → OBSVTOIN 04-27 11:16 → UNDODISIN 04-27 21:50
PROVIDERS: ADMIT Internal Medicine; ATTEND Internal Medicine
DX: K56.609 Unspecified intestinal obstruction, unspecified as to partial versus complete obstruction (principal); M79.89 Other specified soft tissue disorders; I10 Essential (primary) hypertension; M19.90 Unspecified osteoarthritis, unspecified site; E03.9 Hypothyroidism, unspecified; E66.9 Obesity, unspecified; E87.6 Hypokalemia; Z90.710 Acquired absence of both cervix and uterus; Z80.3 Family history of malignant neoplasm of breast; Z68.31 Body mass index [BMI] 31.0-31.9, adult
CPT/HCPCS: 36415; 71045; 74018; 74019; 74177; 78580; 80048; 80053; 81001; 82140; 82550; 82962; 83735; 84439; 84443; 84484; 85025; 85379; 85610; 87040; 87086; 93005; 93970; G0378; A9540; C9113; J0360; J1650; J2270; J2405; J7042; J7120; Q9967

== ENCOUNTER 2021-06-08 10:30 | Outpatient (CLI) | payer MEDICARE | END 2021-06-08 10:31 | disposition home or self-care (01) | LOC: MAMMO 10:30 | PROVIDERS: ATTEND Internal Medicine | DX: Z12.31 Encounter for screening mammogram for malignant neoplasm of breast (principal) | CPT/HCPCS: 77067 ==

== ENCOUNTER 2021-07-06 14:28 | Outpatient (CLI) | payer MEDICARE ==
--- NOTE | 2021-07-06 15:36 | XRay Report ---
RIGHT SHOULDER 3 VIEW(S) INDICATION / CLINICAL INFORMATION: RIGHT SHOULDER PAIN COMPARISON: None available. FINDINGS: BONES / JOINT(S): No acute fracture or subluxation. Mild degenerative changes of the acromioclavicula r joint and mild degenerative changes of the glenohumeral joint. SOFT TISSUES: No significant abnormality. ADDITIONAL FINDINGS: None. Signer Name: Sarwat Blackburn MD Signed: 07/06/2021 3:31 PM Workstation Name: [id number]
--- NOTE | 2021-07-06 16:12 | XRay Report ---
LUMBOSACRAL SPINE, 5 VIEWS INDICATION / CLINICAL INFORMATION: LOW BACK PAIN. COMPARISON: None available. FINDINGS: Moderate degenerative disc disease is present at L4-L5. Mild degenerative disc disease is present at L3-L4 and L5-S1. The remainder of the disc spaces are well-preserved. Vertebral body heights are norm al. Alignment is normal. Mild to moderate facet degenerative changes noted in the lower lumbar spine. No evidence of fracture. Oblique views were also obtained and do not show any evidence for spondylolysis. Large amount of stool is incidentally noted throughout the colon. IMPRESSION: 1. Multilevel degenerative disc disease, most notable at L4-L5. 2. Mild to moderate facet degenerative change of the lower lumbar spine. 3. Large amount of stool is noted throughout the colon. Signer Name: Judith Rivero MD Signed: 07/06/2021 4:07 PM Workstation Name: [id number]
== END 2021-07-06 14:29 | disposition home or self-care (01) ==
LOC: XRAY 14:28
PROVIDERS: ATTEND Internal Medicine
DX: M19.011 Primary osteoarthritis, right shoulder (principal); M51.37 Other intervertebral disc degeneration, lumbosacral region; M47.817 Spondylosis without myelopathy or radiculopathy, lumbosacral region
CPT/HCPCS: 72110

== ENCOUNTER 2022-05-07 14:54 | Outpatient (CLI) | payer MEDICARE ==
--- NOTE | 2022-05-07 17:10 | XRay Report ---
RIGHT RIBS 5 VIEWS INDICATION / CLINICAL INFORMATION: PAIN IN T-SPINE. COMPARISON: None available. FINDINGS: RIBS: No acute, displaced fracture or other acute abnormality. LUNGS: No acute findings. No pneumothorax. ADDITIONAL FINDINGS: None. IMPRESSION: 1. No fracture is seen. Signer Name: Mason Deal MD Signed: 05/07/2022 5:05 PM Workstation Name: [id number]
== END 2022-05-07 14:55 | disposition home or self-care (01) ==
LOC: XRAY 14:54
PROVIDERS: ATTEND Internal Medicine
DX: M54.6 Pain in thoracic spine (principal)